=== PATIENT | female | born 1965 | race Caucasian/White ===

== ENCOUNTER 2018-05-26 13:00 | Outpatient (RCR) | payer OTHER, SELFPAY ==
--- NOTE | 2018-04-03 09:00 | PT.OPPOC ---
Current Diagnoses Benign paroxysmal vertigo, bilateral (04/03/18) Other abnormal auditory perceptions, bilateral (04/03/18) Dizziness and giddiness (04/03/18) Provider Visit Care Team Role Provider Type Iglesia Henao MD Family Provider Physician Primary Care Provider Specialty: Family Practice Address: [address] [place] [address], [id number] Email: [email or web address] Bayron Cruz MD Attending Provider Physician Specialty: Ear, Nose, Throat Address: [address] [place] [address], [id number] Email: Plan Of Care PT-OP-T Assessment and Plan Start: 04/03/18 07:47 Freq: Status: Active Protocol: Document 04/03/18 09:00 AMB (Rec: 04/07/18 08:17 AMB [email or web address]) Physical Therapy Assessment Rehab Potential Rehabilitation Potential Good Evaluation Complexity Number of Personal Factors/Comorbidities 1-2 Number of Body Systems Impaired 3 Clinical Presentation at Evaluation Evolving Impairments Impairments Balance Functional Mobility Vestibular Goals Two Impairment Balance Short Term Goal (STG) The patient will stand on one leg for 15 seconds with eyes open. STG Duration 4 weeks Veterinary Assistant Goal (LTG) The patient will stand with modified tandem stance with eyes closed without loss of balance. LTG Duration 8 weeks One Impairment Dizziness Short Term Goal (STG) The patient will get out of bed without dizziness. STG Duration 4 weeks Veterinary Assistant Goal (LTG) The patient with turn quickly while walking without dizziness. LTG Duration 8 weeks Assessment Summary Assessment The patient presents with chronic motion sensitivity and dizziness with an acute exacerbation 3 months ago. At the time of her evaluation, her right sided BPPV appeared to have cleared (we will reassess this in the future as well) so she was treated for L sided BPPV. She will also benefit from vestibular rehab given her chronic symptoms. Physical Therapy Plan Frequency and Duration Frequency of Treatment 1x/Week Duration of Treatment 8 weeks Plan of Care Start Date 04/03/18 Plan of Care End Date 05/29/18 Therapeutic Interventions Therapeutic Interventions Balance Training Canalithic Repositioning Coordination Training Gait Training Home Exercise Program Manual Therapy Neuromuscular Re-education Self-Care/Home Management Therapeutic Activities Therapeutic Exercises Vestibular Rehabilitation Next Visit Focus/Plan Next Note Type Treatment Note Plan of Care Dates Plan of Care Start Date 04/03/18 Plan of Care End Date 05/29/18 Please Sign and Return: I have reviewed this Plan of Care and certify that the skilled therapy services above are required to meet the patient?s needs. Physician Signature Date Printed Name and Credentials Clinical Instructor Signature Printed Name and Credentials
--- NOTE | 2018-04-04 09:00 | PT.OIE ---
Current Diagnoses Benign paroxysmal vertigo, bilateral (04/03/18) Other abnormal auditory perceptions, bilateral (04/03/18) Dizziness and giddiness (04/03/18) Past Surgical History History of tonsillectomy Provider Visit Care Team Role Provider Type Iglesia Henao MD Family Provider Physician Primary Care Provider Specialty: Family Practice Address: [address] [place] [address], [id number] Email: [email or web address] Bayron Cruz MD Attending Provider Physician Specialty: Ear, Nose, Throat Address: [address] [place] [address], [id number] Email: Physical Therapy Initial Evaluation PT-OP-A Visit Information Start: 04/03/18 07:47 Freq: Status: Active Protocol: Document 04/03/18 09:00 AMB (Rec: 04/07/18 07:31 AMB [email or web address]) Out-Patient Physical Therapy Visit Information Visit Information Visit Type Initial Evaluation Visit Note 45 visits pcy Visit Start Time 09:00 Visit Stop Time 09:45 Total Visit Minutes 45 Visit Number 1 Evaluation Information Evaluation Date 04/03/18 PT-OP-B Current Condition Start: 04/03/18 07:47 Freq: Status: Active Protocol: Document 04/03/18 09:00 AMB (Rec: 04/07/18 07:31 AMB [email or web address]) Current Condition History of Current Condition History of Current Condition The patient has noticed some dizziness and motion sensitivity since she was 13. This became much worse after a fishing trip a year ago. Woke up with vertigo an took 3 -4 days to go away. More recently she was on a small plane and felt pressure in her ears and vomited afterwards. It took a week for those symptoms to recede. She was then evaluated by ENT and was diagnosed with bilateral BPPV. Since that time her symptoms have decreased, but she continues to feel mild dizziness with getting out of bed and quick head turns. She does have a history of 3 concussions, plantar fasciitis (intermittent foot numbness). Current Functional Impairments (Reported) Functional Limitations- ADL's Difficulty with higher level activities (hiking, boating) PT-OP-C Subjective Start: 04/03/18 07:47 Freq: Status: Active Protocol: Document 04/03/18 09:00 AMB (Rec: 04/07/18 07:31 AMB [email or web address]) Patient Questionnaires ABC- Activity Specific Balance Confidence Scale ABC Score 90 ABC Functional Impairment 1 to <20% Impaired (Score 81- 99) Dizziness Handicap Inventory DHI Score 18 DHI Functional Impairment 1 to 19% Impaired (Score 1-19) PT-OP-D Balance Start: 04/03/18 07:47 Freq: Status: Active Protocol: Document 04/03/18 09:00 AMB (Rec: 04/07/18 08:17 AMB [email or web address]) Balance Tests Single Limb Standing Single Limb- Right unable Single Limb- Left unable Semi-Tandem Standing Semi-Tandem Standing Balance eyes open: 15 sec+, eyes closed: 5 seconds PT-OP-O Vestibular Start: 04/03/18 07:47 Freq: Status: Active Protocol: Document 04/03/18 09:00 AMB (Rec: 04/07/18 08:17 AMB [email or web address]) Vestibular Assessment Visual Testing Smooth Pursuits Horizontal WFL Smooth Pursuits Vertical WFL Saccades Horizontal WFL Saccades Vertical WFL Thrust Head Positive Left Head Shake Positive Positional Testing [place]-Hallpike Positive Left Negative Right Upbeating Rolling Test Negative Left Negative Right PT-OP-Q Treatments Start: 04/03/18 07:47 Freq: Status: Active Protocol: Document 04/03/18 09:00 AMB (Rec: 04/07/18 08:17 AMB [email or web address]) Canalithic Repositioning BPPV Treatment Ursula Affected Canal(s) L Reps 1 PT-OP-T Assessment and Plan Start: 04/03/18 07:47 Freq: Status: Active Protocol: Document 04/03/18 09:00 AMB (Rec: 04/07/18 08:17 AMB [email or web address]) Physical Therapy Assessment Rehab Potential Rehabilitation Potential Good Evaluation Complexity Number of Personal Factors/Comorbidities 1-2 Number of Body Systems Impaired 3 Clinical Presentation at Evaluation Evolving Impairments Impairments Balance Functional Mobility Vestibular Goals Two Impairment Balance Short Term Goal (STG) The patient will stand on one leg for 15 seconds with eyes open. STG Duration 4 weeks College Or University Registrar Goal (LTG) The patient will stand with modified tandem stance with eyes closed without loss of balance. LTG Duration 8 weeks One Impairment Dizziness Short Term Goal (STG) The patient will get out of bed without dizziness. STG Duration 4 weeks College Or University Registrar Goal (LTG) The patient with turn quickly while walking without dizziness. LTG Duration 8 weeks Assessment Summary Assessment The patient presents with chronic motion sensitivity and dizziness with an acute exacerbation 3 months ago. At the time of her evaluation, her right sided BPPV appeared to have cleared (we will reassess this in the future as well) so she was treated for L sided BPPV. She will also benefit from vestibular rehab given her chronic symptoms. Physical Therapy Plan Frequency and Duration Frequency of Treatment 1x/Week Duration of Treatment 8 weeks Plan of Care Start Date 04/03/18 Plan of Care End Date 05/29/18 Therapeutic Interventions Therapeutic Interventions Balance Training Canalithic Repositioning Coordination Training Gait Training Home Exercise Program Manual Therapy Neuromuscular Re-education Self-Care/Home Management Therapeutic Activities Therapeutic Exercises Vestibular Rehabilitation Next Visit Focus/Plan Next Note Type Treatment Note
--- NOTE | 2018-04-07 16:16 | PT.OPPOC ---
Current Diagnoses Benign paroxysmal vertigo, bilateral (04/03/18) Other abnormal auditory perceptions, bilateral (04/03/18) Dizziness and giddiness (04/03/18) Provider Visit Care Team Role Provider Type Iglesia Henao MD Family Provider Physician Primary Care Provider Specialty: Family Practice Address: [address] [place] [address], [id number] Email: [email or web address] Bayron Cruz MD Attending Provider Physician Specialty: Ear, Nose, Throat Address: [address] [place] [address], [id number] Email: Plan Of Care PT-OP-T Assessment and Plan Start: 04/03/18 07:47 Freq: Status: Active Protocol: Document 04/03/18 09:00 AMB (Rec: 04/07/18 08:17 AMB [email or web address]) Physical Therapy Assessment Rehab Potential Rehabilitation Potential Good Evaluation Complexity Number of Personal Factors/Comorbidities 1-2 Number of Body Systems Impaired 3 Clinical Presentation at Evaluation Evolving Impairments Impairments Balance Functional Mobility Vestibular Goals Two Impairment Balance Short Term Goal (STG) The patient will stand on one leg for 15 seconds with eyes open. STG Duration 4 weeks Pest Technician Goal (LTG) The patient will stand with modified tandem stance with eyes closed without loss of balance. LTG Duration 8 weeks One Impairment Dizziness Short Term Goal (STG) The patient will get out of bed without dizziness. STG Duration 4 weeks Pest Technician Goal (LTG) The patient with turn quickly while walking without dizziness. LTG Duration 8 weeks Assessment Summary Assessment The patient presents with chronic motion sensitivity and dizziness with an acute exacerbation 3 months ago. At the time of her evaluation, her right sided BPPV appeared to have cleared (we will reassess this in the future as well) so she was treated for L sided BPPV. She will also benefit from vestibular rehab given her chronic symptoms. Physical Therapy Plan Frequency and Duration Frequency of Treatment 1x/Week Duration of Treatment 8 weeks Plan of Care Start Date 04/03/18 Plan of Care End Date 05/29/18 Therapeutic Interventions Therapeutic Interventions Balance Training Canalithic Repositioning Coordination Training Gait Training Home Exercise Program Manual Therapy Neuromuscular Re-education Self-Care/Home Management Therapeutic Activities Therapeutic Exercises Vestibular Rehabilitation Next Visit Focus/Plan Next Note Type Treatment Note Plan of Care Dates Plan of Care Start Date 04/03/18 Plan of Care End Date 05/29/18 Please Sign and Return: I have reviewed this Plan of Care and certify that the skilled therapy services above are required to meet the patient?s needs. Physician Signature Date Printed Name and Credentials Clinical Instructor Signature Printed Name and Credentials
--- NOTE | 2018-04-10 15:39 | PT.OTN ---
Current Diagnoses Benign paroxysmal vertigo, bilateral (04/10/18) Other abnormal auditory perceptions, bilateral (04/10/18) Physical Therapy Treatment Note PT-OP-A Visit Information Start: 04/03/18 07:47 Freq: Status: Active Protocol: Document 04/10/18 10:30 AMB (Rec: 04/10/18 15:37 AMB [email or web address]) Out-Patient Physical Therapy Visit Information Visit Information Visit Type Treatment Note Visit Start Time 10:30 Visit Stop Time 11:00 Total Visit Minutes 30 Visit Number 2 Number of CHIEF COUNSEL Visits 0 Evaluation Information Evaluation Date 04/03/18 PT-OP-B Current Condition Start: 04/03/18 07:47 Freq: Status: Active Protocol: Document 04/03/18 09:00 AMB (Rec: 04/07/18 07:31 AMB [email or web address]) Current Condition History of Current Condition History of Current Condition The patient has noticed some dizziness and motion sensitivity since she was 13. This became much worse after a fishing trip a year ago. Woke up with vertigo an took 3 -4 days to go away. More recently she was on a small plane and felt pressure in her ears and vomited afterwards. It took a week for those symptoms to recede. She was then evaluated by ENT and was diagnosed with bilateral BPPV. Since that time her symptoms have decreased, but she continues to feel mild dizziness with getting out of bed and quick head turns. She does have a history of 3 concussions, plantar fasciits (intermittent foot numbness). Current Functional Impairments (Reported) Functional Limitations- ADL's Difficulty with higher level activities (hiking, boating) PT-OP-C Subjective Start: 04/03/18 07:47 Freq: Status: Active Protocol: Document 04/10/18 10:30 AMB (Rec: 04/10/18 15:37 AMB [email or web address]) OP-PT Subjective Patient Comments Patient Comments Pt states she over did it with the head turn exercises and has felt a head argueta with looking down for the past 3 days. The pressure is getting better, but continues when she bends over to pick something up. PT-OP-D Balance Start: 04/03/18 07:47 Freq: Status: Active Protocol: Document 04/03/18 09:00 AMB (Rec: 04/07/18 08:17 AMB [email or web address]) Balance Tests Single Limb Standing Single Limb- Right unable Single Limb- Left unable Semi-Tandem Standing Semi-Tandem Standing Balance eyes open: 15 sec+, eyes closed: 5 seconds PT-OP-O Vestibular Start: 04/03/18 07:47 Freq: Status: Active Protocol: Document 04/03/18 09:00 AMB (Rec: 04/07/18 08:17 AMB [email or web address]) Vestibular Assessment Visual Testing Smooth Pursuits Horizontal WFL Smooth Pursuits Vertical WFL Saccades Horizontal WFL Saccades Vertical WFL Thrust Head Positive Left Head Shake Positive Positional Testing [place]-Hallpike Positive Left Negative Right Upbeating Rolling Test Negative Left Negative Right PT-OP-Q Treatments Start: 04/03/18 07:47 Freq: Status: Active Protocol: Document 04/10/18 10:30 AMB (Rec: 04/10/18 15:37 AMB [email or web address]) Neuro Re-Education Treatment Balance Activities 3 Details stimulating background Comments NBOS with moving background 2 Details eyes closed Comments modified tandem stance, NBOS 1 Details walking with headturns Surface smooth Reps/Duration 10min Comments horizontal and vertical Vestibular Rehabilitation VOR Retraining Details thumb Distance From Target arms length Comments NBOS, modified tandem, slower head turn PT-OP-T Assessment and Plan Start: 04/03/18 07:47 Freq: Status: Active Protocol: Document 04/10/18 10:30 AMB (Rec: 04/10/18 15:37 AMB [email or web address]) Physical Therapy Assessment Assessment Summary Assessment Pt did not have nystagmus or dizziness with [place] Hallpike bilaterally. She did feel a head argueta Physical Therapy Plan Next Visit Focus/Plan Next Note Type Treatment Note Next Visit Plan Try foam balance, pt to work on walking with head turns as part of HEP
--- NOTE | 2018-04-28 14:28 | PT.OTN ---
Current Diagnoses Benign paroxysmal vertigo, bilateral (04/28/18) Other abnormal auditory perceptions, bilateral (04/28/18) Physical Therapy Treatment Note PT-OP-A Visit Information Start: 04/03/18 07:47 Freq: Status: Active Protocol: Document 04/28/18 10:00 AMB (Rec: 04/28/18 13:29 AMB [email or web address]) Out-Patient Physical Therapy Visit Information Visit Information Visit Type Treatment Note Visit Start Time 10:00 Visit Stop Time 10:30 Total Visit Minutes 30 Visit Number 3 Number of NETWORK TECHNICAL ANALYST Visits 0 Evaluation Information Evaluation Date 04/03/18 PT-OP-B Current Condition Start: 04/03/18 07:47 Freq: Status: Active Protocol: Document 04/03/18 09:00 AMB (Rec: 04/07/18 07:31 AMB [email or web address]) Current Condition History of Current Condition History of Current Condition The patient has noticed some dizziness and motion sensitivity since she was 13. This became much worse after a fishing trip a year ago. Woke up with vertigo an took 3 -4 days to go away. More recently she was on a small plane and felt pressure in her ears and vomited afterwards. It took a week for those symptoms to recede. She was then evaluated by ENT and was diagnosed with bilateral BPPV. Since that time her symptoms have decreased, but she continues to feel mild dizziness with getting out of bed and quick head turns. She does have a history of 3 concussions, plantar fasciits (intermittent foot numbness). Current Functional Impairments (Reported) Functional Limitations- ADL's Difficulty with higher level activities (hiking, boating) PT-OP-C Subjective Start: 04/03/18 07:47 Freq: Status: Active Protocol: Document 04/28/18 10:00 AMB (Rec: 04/28/18 13:29 AMB [email or web address]) OP-PT Subjective Patient Comments Patient Comments The patient notes it was especially difficult to walk at night (getting out of bed). PT-OP-D Balance Start: 04/03/18 07:47 Freq: Status: Active Protocol: Document 04/03/18 09:00 AMB (Rec: 04/07/18 08:17 AMB [email or web address]) Balance Tests Single Limb Standing Single Limb- Right unable Single Limb- Left unable Semi-Tandem Standing Semi-Tandem Standing Balance eyes open: 15 sec+, eyes closed: 5 seconds PT-OP-O Vestibular Start: 04/03/18 07:47 Freq: Status: Active Protocol: Document 04/03/18 09:00 AMB (Rec: 04/07/18 08:17 AMB [email or web address]) Vestibular Assessment Visual Testing Smooth Pursuits Horizontal WFL Smooth Pursuits Vertical WFL Saccades Horizontal WFL Saccades Vertical WFL Thrust Head Positive Left Head Shake Positive Positional Testing [place]-Hallpike Positive Left Negative Right Upbeating Rolling Test Negative Left Negative Right PT-OP-Q Treatments Start: 04/03/18 07:47 Freq: Status: Active Protocol: Document 04/28/18 10:00 AMB (Rec: 04/28/18 14:27 AMB [email or web address]) Neuro Re-Education Treatment Balance Activities 4 Details Foam- blue then qiu Comments eyes closed, then eyes closed with head turns 2 Details eyes closed Comments modified tandem stance, NBOS PT-OP-T Assessment and Plan Start: 04/03/18 07:47 Freq: Status: Active Protocol: Document 04/28/18 10:00 AMB (Rec: 04/28/18 13:29 AMB [email or web address]) Physical Therapy Assessment Assessment Summary Assessment Pt feels that alcohol and caffeine have a negative effect on her ability to do her exercises. She has been doing her exercises for the past week (not previously as they were on vacation). Physical Therapy Plan Next Visit Focus/Plan Next Note Type Treatment Note Next Visit Plan EC added to HEP
--- NOTE | 2018-05-07 16:14 | PT.OTN ---
Current Diagnoses Benign paroxysmal vertigo, bilateral (05/07/18) Other abnormal auditory perceptions, bilateral (05/07/18) Physical Therapy Treatment Note PT-OP-A Visit Information Start: 04/03/18 07:47 Freq: Status: Active Protocol: Document 05/07/18 09:00 AMB (Rec: 05/07/18 16:13 AMB [email or web address]) Out-Patient Physical Therapy Visit Information Visit Information Visit Type Treatment Note Visit Start Time 09:00 Visit Stop Time 09:45 Total Visit Minutes 45 Visit Number 4 Number of BUSINESS ATTORNEY Visits 0 Evaluation Information Evaluation Date 04/03/18 PT-OP-B Current Condition Start: 04/03/18 07:47 Freq: Status: Active Protocol: Document 04/03/18 09:00 AMB (Rec: 04/07/18 07:31 AMB [email or web address]) Current Condition History of Current Condition History of Current Condition The patient has noticed some dizziness and motion sensitivity since she was 13. This became much worse after a fishing trip a year ago. Woke up with vertigo an took 3 -4 days to go away. More recently she was on a small plane and felt pressure in her ears and vomited afterwards. It took a week for those symptoms to recede. She was then evaluated by ENT and was diagnosed with bilateral BPPV. Since that time her symptoms have decreased, but she continues to feel mild dizziness with getting out of bed and quick head turns. She does have a history of 3 concussions, plantar fasciits (intermittent foot numbness). Current Functional Impairments (Reported) Functional Limitations- ADL's Difficulty with higher level activities (hiking, boating) PT-OP-C Subjective Start: 04/03/18 07:47 Freq: Status: Active Protocol: Document 05/07/18 09:00 AMB (Rec: 05/07/18 16:13 AMB [email or web address]) OP-PT Subjective Patient Comments Patient Comments Pt notes no dizzy spells since last visit PT-OP-D Balance Start: 04/03/18 07:47 Freq: Status: Active Protocol: Document 04/03/18 09:00 AMB (Rec: 04/07/18 08:17 AMB [email or web address]) Balance Tests Single Limb Standing Single Limb- Right unable Single Limb- Left unable Semi-Tandem Standing Semi-Tandem Standing Balance eyes open: 15 sec+, eyes closed: 5 seconds PT-OP-O Vestibular Start: 04/03/18 07:47 Freq: Status: Active Protocol: Document 04/03/18 09:00 AMB (Rec: 04/07/18 08:17 AMB [email or web address]) Vestibular Assessment Visual Testing Smooth Pursuits Horizontal WFL Smooth Pursuits Vertical WFL Saccades Horizontal WFL Saccades Vertical WFL Thrust Head Positive Left Head Shake Positive Positional Testing Sebastien-Hallpike Positive Left Negative Right Upbeating Rolling Test Negative Left Negative Right PT-OP-Q Treatments Start: 04/03/18 07:47 Freq: Status: Active Protocol: Document 05/07/18 09:00 AMB (Rec: 05/07/18 16:13 AMB [email or web address]) Gym Equipment Shuttle Balance 1 Details RED Reps/Duration 15 min Comments WBOS then stride stance with head turns then eyes closed Neuro Re-Education Treatment Balance Activities 4 Details Foam- blue then qiu Comments eyes closed, then eyes closed with head turns 2 Details eyes closed Comments modified tandem stance, NBOS 1 Details walking with headturns Surface smooth Reps/Duration 10min Comments horizontal and vertical PT-OP-T Assessment and Plan Start: 04/03/18 07:47 Freq: Status: Active Protocol: Document 05/07/18 09:00 AMB (Rec: 05/07/18 16:13 AMB [email or web address]) Physical Therapy Assessment Assessment Summary Assessment Pt with most sx when room is very dark. Physical Therapy Plan Next Visit Focus/Plan Next Note Type Treatment Note Next Visit Plan Continue to work with eyes closed activities
--- NOTE | 2018-05-26 16:35 | PT.OTN ---
Current Diagnoses Benign paroxysmal vertigo, bilateral (05/26/18) Other abnormal auditory perceptions, bilateral (05/26/18) Physical Therapy Treatment Note PT-OP-A Visit Information Start: 04/03/18 07:47 Freq: Status: Active Protocol: Document 05/26/18 13:00 AMB (Rec: 05/26/18 16:35 AMB [email or web address]) Out-Patient Physical Therapy Visit Information Visit Information Visit Type Progress Note Visit Start Time 13:00 Visit Stop Time 13:45 Total Visit Minutes 45 Visit Number 5 Evaluation Information Evaluation Date 04/03/18 PT-OP-B Current Condition Start: 04/03/18 07:47 Freq: Status: Active Protocol: Document 04/03/18 09:00 AMB (Rec: 04/07/18 07:31 AMB [email or web address]) Current Condition History of Current Condition History of Current Condition The patient has noticed some dizziness and motion sensitivity since she was 13. This became much worse after a fishing trip a year ago. Woke up with vertigo an took 3 -4 days to go away. More recently she was on a small plane and felt pressure in her ears and vomited afterwards. It took a week for those symptoms to recede. She was then evaluated by ENT and was diagnosed with bilateral BPPV. Since that time her symptoms have decreased, but she continues to feel mild dizziness with getting out of bed and quick head turns. She does have a history of 3 concussions, plantar fasciits (intermittent foot numbness). Current Functional Impairments (Reported) Functional Limitations- ADL's Difficulty with higher level activities (hiking, boating) PT-OP-C Subjective Start: 04/03/18 07:47 Freq: Status: Active Protocol: Document 05/26/18 13:00 AMB (Rec: 05/26/18 16:35 AMB [email or web address]) OP-PT Subjective Patient Comments Patient Comments Pt feels she is overall doing better. She was able to walk in the dark better without falling. PT-OP-D Balance Start: 04/03/18 07:47 Freq: Status: Active Protocol: Document 04/03/18 09:00 AMB (Rec: 04/07/18 08:17 AMB [email or web address]) Balance Tests Single Limb Standing Single Limb- Right unable Single Limb- Left unable Semi-Tandem Standing Semi-Tandem Standing Balance eyes open: 15 sec+, eyes closed: 5 seconds PT-OP-O Vestibular Start: 04/03/18 07:47 Freq: Status: Active Protocol: Document 04/03/18 09:00 AMB (Rec: 04/07/18 08:17 AMB [email or web address]) Vestibular Assessment Visual Testing Smooth Pursuits Horizontal WFL Smooth Pursuits Vertical WFL Saccades Horizontal WFL Saccades Vertical WFL Thrust Head Positive Left Head Shake Positive Positional Testing Sebastien-Hallpike Positive Left Negative Right Upbeating Rolling Test Negative Left Negative Right PT-OP-Q Treatments Start: 04/03/18 07:47 Freq: Status: Active Protocol: Document 05/26/18 13:00 AMB (Rec: 05/26/18 16:35 AMB [email or web address]) Gym Equipment Shuttle Balance 1 Details RED Reps/Duration 15 min Comments WBOS then stride stance with head turns then eyes closed Neuro Re-Education Treatment Balance Activities 2 Details eyes closed Comments modified tandem stance, NBOS 1 Details walking with headturns Surface smooth Reps/Duration 10min Comments horizontal and vertical and diagonal PT-OP-T Assessment and Plan Start: 04/03/18 07:47 Freq: Status: Active Protocol: Document 05/26/18 13:00 AMB (Rec: 05/26/18 16:35 AMB [email or web address]) Physical Therapy Assessment Goals Two Impairment Balance Short Term Goal (STG) The patient will stand on one leg for 15 seconds with eyes open. MET STG Duration 4 weeks Half-Way Goal (LTG) The patient will stand with modified tandem stance with eyes closed without loss of balance. MET LTG Duration 8 weeks One Impairment Dizziness Short Term Goal (STG) The patient will get out of bed without dizziness. MET STG Duration 4 weeks Half-Way Goal (LTG) The patient with turn quickly while walking without dizziness. PROGRESS MADE LTG Duration 8 weeks Assessment Summary Assessment Pt with DGI 23/24. Symptomatic with diagonal head turns, but otherwise is improving. Physical Therapy Plan Frequency and Duration Frequency of Treatment 1x/Week Duration of Treatment 8 weeks Plan of Care Start Date 05/26/18 Plan of Care End Date 07/21/18 Therapeutic Interventions Therapeutic Interventions Balance Training Canalithic Repositioning Coordination Training Gait Training Home Exercise Program Manual Therapy Neuromuscular Re-education Self-Care/Home Management Therapeutic Activities Therapeutic Exercises Vestibular Rehabilitation Next Visit Focus/Plan Next Note Type Treatment Note Next Visit Plan Re-evaluate pt's higher level balance
--- NOTE | 2018-05-26 16:35 | PT.OPPOC ---
Current Diagnoses Benign paroxysmal vertigo, bilateral (05/26/18) Other abnormal auditory perceptions, bilateral (05/26/18) Provider Visit Care Team Role Provider Type Iglesia Henao MD Family Provider Physician Primary Care Provider Specialty: Family Practice Address: [address] [place] [address] [address], [place], [address] Email: [email or web address] Bayron Cruz MD Attending Provider Physician Specialty: Ear, Nose, Throat Address: [address] [place] [address], [address] Email: Plan Of Care PT-OP-T Assessment and Plan Start: 04/03/18 07:47 Freq: Status: Active Protocol: Document 05/26/18 13:00 AMB (Rec: 05/26/18 16:35 AMB [email or web address]) Physical Therapy Assessment Goals Two Impairment Balance Short Term Goal (STG) The patient will stand on one leg for 15 seconds with eyes open. MET STG Duration 4 weeks Senior Care Goal (LTG) The patient will stand with modified tandem stance with eyes closed without loss of balance. MET LTG Duration 8 weeks One Impairment Dizziness Short Term Goal (STG) The patient will get out of bed without dizziness. MET STG Duration 4 weeks Wool Grower Goal (LTG) The patient with turn quickly while walking without dizziness. PROGRESS MADE LTG Duration 8 weeks Assessment Summary Assessment Pt with DGI 23/24. Symptomatic with diagonal head turns, but otherwise is improving. Physical Therapy Plan Frequency and Duration Frequency of Treatment 1x/Week Duration of Treatment 8 weeks Plan of Care Start Date 05/26/18 Plan of Care End Date 07/21/18 Therapeutic Interventions Therapeutic Interventions Balance Training Canalithic Repositioning Coordination Training Gait Training Home Exercise Program Manual Therapy Neuromuscular Re-education Self-Care/Home Management Therapeutic Activities Therapeutic Exercises Vestibular Rehabilitation Next Visit Focus/Plan Next Note Type Treatment Note Next Visit Plan Re-evaluate pt's higher level balance Plan of Care Dates Plan of Care Start Date 05/26/18 Plan of Care End Date 07/21/18 Please Sign and Return: I have reviewed this Plan of Care and certify that the skilled therapy services above are required to meet the patient?s needs. Physician Signature Date Printed Name and Credentials Clinical Instructor Signature Printed Name and Credentials
--- NOTE | 2018-07-28 08:39 | PT.OPDS ---
Current Diagnoses Benign paroxysmal vertigo, bilateral (05/26/18) Other abnormal auditory perceptions, bilateral (05/26/18) Provider Visit Care Team Role Provider Type Iglesia Henao MD Family Provider Physician Primary Care Provider Specialty: Family Practice Address: [address] [place] [address], [id number] Email: [email or web address] Bayron Cruz MD Attending Provider Physician Specialty: Ear, Nose, Throat Address: [address] [place] [address], [id number] Email: Visit Number Visit Number 5 Discharge Summary PT-OP-B Current Condition Start: 04/03/18 07:47 Freq: Status: Active Protocol: Document 04/03/18 09:00 AMB (Rec: 04/07/18 07:31 AMB [email or web address]) Current Condition History of Current Condition History of Current Condition The patient has noticed some dizziness and motion sensitivity since she was 13. This became much worse after a fishing trip a year ago. Woke up with vertigo an took 3 -4 days to go away. More recently she was on a small plane and felt pressure in her ears and vomited afterwards. It took a week for those symptoms to recede. She was then evaluated by ENT and was diagnosed with bilateral BPPV. Since that time her symptoms have decreased, but she continues to feel mild dizziness with getting out of bed and quick head turns. She does have a history of 3 concussions, plantar fasciits (intermittent foot numbness). Current Functional Impairments (Reported) Functional Limitations- ADL's Difficulty with higher level activities (hiking, boating) PT-OP-C Subjective Start: 04/03/18 07:47 Freq: Status: Active Protocol: Document 05/26/18 13:00 AMB (Rec: 05/26/18 16:35 AMB [email or web address]) OP-PT Subjective Patient Comments Patient Comments Pt feels she is overall doing better. She was able to walk in the dark better without falling. PT-OP-D Balance Start: 04/03/18 07:47 Freq: Status: Active Protocol: Document 04/03/18 09:00 AMB (Rec: 07/02/18 08:17 AMB [email or web address]) Balance Tests Single Limb Standing Single Limb- Right unable Single Limb- Left unable Semi-Tandem Standing Semi-Tandem Standing Balance eyes open: 15 sec+, eyes closed: 5 seconds PT-OP-O Vestibular Start: 04/03/18 07:47 Freq: Status: Active Protocol: Document 04/03/18 09:00 AMB (Rec: 04/07/18 08:17 AMB [email or web address]) Vestibular Assessment Visual Testing Smooth Pursuits Horizontal WFL Smooth Pursuits Vertical WFL Saccades Horizontal WFL Saccades Vertical WFL Thrust Head Positive Left Head Shake Positive Positional Testing Sebastien-Hallpike Positive Left Negative Right Upbeating Rolling Test Negative Left Negative Right PT-OP-T Assessment and Plan Start: 04/03/18 07:47 Freq: Status: Active Protocol: Document 07/28/18 08:29 AMB (Rec: 07/28/18 08:39 AMB [email or web address]) Physical Therapy Assessment Goals Two Impairment Balance Short Term Goal (STG) The patient will stand on one leg for 15 seconds with eyes open. MET STG Duration 4 weeks Cottage Attendant Goal (LTG) The patient will stand with modified tandem stance with eyes closed without loss of balance. MET LTG Duration 8 weeks One Impairment Dizziness Short Term Goal (STG) The patient will get out of bed without dizziness. MET STG Duration 4 weeks Mcc Goal (LTG) The patient with turn quickly while walking without dizziness. PROGRESS MADE LTG Duration 8 weeks Assessment Summary Assessment At last visit: Pt with DGI 23 . Symptomatic with diagonal head turns, but otherwise is improving. She no longer has dizziness with bed mobility, but her high level balance (eyes closed, head turns) is not what it should be yet. The patient has not returned phone calls to schedule more. Physical Therapy Plan Discharge Physical Therapy Discharge Reasons No Longer Attending PT Discharge Comments Pt has not been seen since May.
== END 2018-05-27 11:12 ==
LOC: PHYS 13:00
PROVIDERS: Family Provider Family Medicine; PCP Family Medicine; Visit Provider Otolaryngology
DX: H93.293 Other abnormal auditory perceptions, bilateral (principal); H81.13 Benign paroxysmal vertigo, bilateral
CPT/HCPCS: 97112; 97162

== ENCOUNTER → 2019-05-04 14:00 | Outpatient (CLI) | payer OTHER, SELFPAY ==
--- NOTE | 2019-05-04 | DI.MG.S_ITS ---
BILATERAL DIGITAL SCREENING MAMMOGRAM 3D/2D WITH CAD: 05/04/2019 CLINICAL: Routine screening. Comparison is made to exams dated: 03/11/2014 mammogram, 02/19/2013 mammogram, and 10/10/2010 mammogram - [facility]. The tissue of both breasts is heterogeneously dense. This may lower the sensitivity of mammography. Current study was also evaluated with a Computer Aided Detection (CAD) system. No significant masses, calcifications, or other findings are seen in either breast. There has been no significant interval change. IMPRESSION: NEGATIVE There is no mammographic evidence of malignancy. A 1 year screening mammogram is recommended. This exam was interpreted at Station ID: [id number]. NOTE: For mammograms, a report in lay terms will be sent to the patient. Approximately 15% of breast malignancies will not be visualized mammographically. In the management of a palpable breast mass, a negative mammogram must not discourage biopsy of a clinically suspicious lesion. Electronically Signed By: Misael olmedo/flash:05/04/2019 18:38:41 copy to: Genaro Leone letter sent: Normal Exam ACR BI-RADS Category 1: Negative [id number]
== END ==
PROVIDERS: PCP Family Medicine; Visit Provider Family Medicine
DX: Z12.31 Encounter for screening mammogram for malignant neoplasm of breast (principal)
CPT/HCPCS: 77063; 77067

== ENCOUNTER → 2020-03-17 09:35 | Outpatient (CLI) | payer OTHER, SELFPAY ==
[2020-03-18 09:15] LABS: COVID19 Sendout NOT DETECTED (Not Detect)
== END ==
PROVIDERS: PCP Family Medicine; Visit Provider Registered Nurse
DX: Z01.818 Encounter for other preprocedural examination (principal)
CPT/HCPCS: 87635

== ENCOUNTER → 2020-07-07 09:42 | Outpatient (CLI) | payer OTHER, SELFPAY ==
[2020-07-07 10:25] LABS: Add Manual Diff / Slide Review NO; Basophils Absolute Auto 0 /uL (0-100); Basophils Percent Auto 0.7 % (0-2); Eosinophils Absolute Auto 100 /uL (0-450); Eosinophils Percent Auto 2.2 % (2-4); Hematocrit 38.1 % (36-46); Hemoglobin 13.3 g/dL (12.0-16.0); Lymphocytes Absolute Auto 2400 /uL (1100-4500); Lymphocytes Percent Auto 36.5 % (25-40); Mean Corpuscular HGB Conc 34.9 % (30-36); Mean Corpuscular Hemoglobin 30.8 PG (26-34); Mean Corpuscular Volume 88.3 fL (80-100); Monocytes Absolute Auto 500 /uL (0-900); Monocytes Percent Auto 8.1 % (3-14); Neutrophils Absolute Auto 3500 /uL (1500-7000); Neutrophils Percent Auto 52.5 % (50-75); Platelet Count 204 X10^3/uL (150-400); Red Blood Cell Count 4.32 X10^6/uL (4.0-5.2); Red Cell Distribution Width 13.6 % (11.6-14.8); White Blood Cell Count 6.6 X10^3/uL (4.5-11.0)
[2020-07-07 10:58] LABS: Alanine Aminotransferase 21 IU/L (<35); Albumin 4.3 g/dL (3.5-5.0); Albumin Globulin Ratio 1.6 (1.0-2.8); Alkaline Phosphatase 74 U/L (38-126); Aspartate Aminotransferase 26 IU/L (14-36); BUN Creatinine Ratio 23.1 (6-22); Bilirubin Total 0.6 mg/dL (0.2-1.3); Blood Urea Nitrogen 15 mg/dL (7-17); Calcium 9.5 mg/dL (8.4-10.2); Carbon Dioxide 30 mmol/L (22-32); Chloride 104 mmol/L (98-107); Cholesterol 218 mg/dL (140-199); Estimated Glomerular Filt Rate > 60.0 mL/min (>60); Globulin 2.7 g/dL (1.7-4.1); Glucose 95 mg/dL (70-100); HDL Cholesterol 88 mg/dL (40-60); HEMOLYSIS < 15 (0-50); LDL Cholesterol Calculated 116 mg/dL (<100); Potassium 4.6 mmol/L (3.4-5.1); Sodium 139 mmol/L (137-145); Triglycerides 71 mg/dL (35-150)
[2020-07-07 11:27] LABS: TSH w/ Reflex to FT4 1.66 uIU/mL (0.47-4.68)
== END ==
PROVIDERS: PCP Family Medicine; Referring Provider Family Medicine; Visit Provider Family Medicine
DX: Z13.220 Encounter for screening for lipoid disorders (principal)
CPT/HCPCS: 36415; 80053; 80061; 84443; 85025

== ENCOUNTER → 2020-08-24 13:52 | Outpatient (CLI) | payer OTHER, SELFPAY ==
[2020-08-24 15:49] LABS: COVID19 -Nasal RAPID Negative (Negative)
== END ==
PROVIDERS: PCP Family Medicine; Visit Provider Physician Assistant
DX: J02.9 Acute pharyngitis, unspecified (principal); R05 Cough; R09.81 Nasal congestion
CPT/HCPCS: 87635

== ENCOUNTER → 2020-08-25 17:18 | Outpatient (CLI) | payer OTHER, SELFPAY ==
--- NOTE | 2020-08-25 | DI.MG.S_ITS ---
BILATERAL DIGITAL SCREENING MAMMOGRAM 3D/2D WITH CAD: 08/25/2020 CLINICAL: Routine screening. Comparison is made to exams dated: 05/04/2019 mammogram, 03/11/2014 mammogram, and 02/19/2013 mammogram - [facility]. The tissue of both breasts is heterogeneously dense. This may lower the sensitivity of mammography. Current study was also evaluated with a Computer Aided Detection (CAD) system. No significant masses, calcifications, or other findings are seen in either breast. There has been no significant interval change. IMPRESSION: NEGATIVE There is no mammographic evidence of malignancy. A 1 year screening mammogram is recommended. This exam was interpreted at Station ID: [id number]. NOTE: For mammograms, a report in lay terms will be sent to the patient. Approximately 15% of breast malignancies will not be visualized mammographically. In the management of a palpable breast mass, a negative mammogram must not discourage biopsy of a clinically suspicious lesion. Electronically Signed By: Hakan diallo/flash:08/26/2020 08:06:29 copy to: Genaro Leone letter sent: Normal Exam ACR BI-RADS Category 1: Negative [id number]
== END ==
PROVIDERS: PCP Family Medicine; Referring Provider Family Medicine; Visit Provider Family Medicine
DX: Z12.31 Encounter for screening mammogram for malignant neoplasm of breast (principal)
CPT/HCPCS: 77063; 77067

== ENCOUNTER → 2020-09-05 09:58 | Outpatient (CLI) | payer OTHER, SELFPAY ==
[2020-09-05 11:05] LABS: COVID19 -Nasal RAPID Negative (Negative)
== END ==
PROVIDERS: PCP Family Medicine; Visit Provider Surgery
DX: Z01.812 Encounter for preprocedural laboratory examination (principal); Z11.59 Encounter for screening for other viral diseases
CPT/HCPCS: 87635; C9803

== ENCOUNTER 2020-09-06 12:46 | Day surgery (SDC) | payer OTHER, SELFPAY ==
[2020-09-06] VITALS (9 sets, daily range): BP systolic 98–130; BP diastolic 50–72; PULSE 57–63; RESP 12–18; TEMP 35.8–36.1; O2SAT 96–100; BMI 25.0
--- NOTE | 2020-09-06 | PATH_ITS ---
[facility] Accession Number: [id number] . 01 Material submitted: . PART A: colon - CECAL POLYP PART B: rectum - RECTAL POLYP @ 15CM . 01 Clinical history: . SDC . 02 Diagnosis: A. Cecum, Polyp, Biopsy: Prominent benign lymphoid aggregate. Negative for dysplasia and malignancy. . B. Rectum, Polyp At 15 CM, Biopsy: Hyperplastic polyp. I 09/08/2020 1428 Local . 02 Electronically signed: . Porsha Crum MD, Pathologist NPI- [id number] . 01 Gross description: . Part A: CECAL POLYP: Received in formalin is 1 fragment(s) of ann, soft tissue measuring 0.7 x 0.3 x 0.1 cm submitted entirely in 1 cassette(s) Part B: RECTAL POLYP @ 15CM: Received in formalin is 1 fragment(s) of ann, soft tissue measuring 0.3 x 0.3 x 0.2 cm submitted entirely in 1 cassette(s) /QBJ 09/07/2020 0814 Local . 02 Pathologist provided ICD-10: K63.5 . 02 CPT . 252766, [id number] Performed at: 01 [facility] [address], [place], [place] [id number] MD Josh Kimbrough MD Phone: [phone] Performed at: 02 [facility] [place] [address] [place], [place] [id number] MD Porsha Crum MD Phone: [phone]
[2020-09-06] MEDS: SODIUM CHLORIDE 0.9% 1,000 ML 200 ML IV ×2 (13:16→14:40)
--- NOTE | 2020-09-06 13:48 | P.HP_ITS ---
History of Present Illness History of Present Illness Date Patient Seen: 09/06/20 Time Patient Seen: 13:49 Chief complaint: [facility] [place] Narrative: This is a 55-year-old woman who has never had a screening colonoscopy. She denies any melena, hematochezia, unexplained weight loss, personal or family history of colon polyps or colon cancers. She has had some left-sided abdominal pain which was unexplained over the last few weeks. She denies any cardiac history other than a slight heart murmur. She says she is otherwise quite healthy. 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 She said last time this happened she was not able to get a breath in for about 3 breaths, and then she was able to breathe. Thirteen system review is otherwise negative other than as mentioned below and in HPI. PE GENERAL: Well groomed and cooperative. Appears stated age. Answers questions promptly and appropriately. Vital signs noted. HENT: Normocephalic, atraumatic. Hearing intact. EYES: Conjunctiva pink, sclera white, no periorbital swelling. CARDIOVASCULAR: Regular rate. No pedal edema. RESPIRATORY: Non-tachypneic, breathing comfortably on room air. GASTROINTESTINAL: Abdomen soft and non-distended GENITALURINARY: No flank tenderness. MUSCULOSKELETAL: Equal tone and mass bilaterally. SKIN: Warm, dry, soft, appropriate color for ethnicity. No other lesions, rashes, or wounds. NEURO: Alert and Oriented X 3. No gross sensory deficits, or cognitive issues. PSYCH: Appropriate affect and mood. Patient History Surgical History History of tonsillectomy Family & Social History Social History: household members spouse Tobacco & Substance use: Smoking Status Never smoker alcohol intake current alcohol intake frequency 0-2 drinks per day Substance Use Type does not use Meds Home Medications and Allergies Home Medications Medication Instructions Recorded Confirmed Type sodium,potassium,mag sulfates 17.5 177 ml PO DAILY #354 ml 08/18/20 Rx gram-3.13 gram-1.6 gram oral soln Ca carb-Ca gluc-Mg ox-Mg gluco 1 tab PO DAILY 09/06/20 09/06/20 History [Calcium Magnesium] cholecalciferol (vitamin D3) 250 mcg PO DAILY 09/06/20 09/06/20 History [Vitamin D3] fluticasone propionate [Flonase] 2 spray INTRANASAL DAILY PRN 09/06/20 09/06/20 History pfskfhcjgdap-onax-ygbqu acid 1 tab PO DAILY 09/06/20 09/06/20 History [Multi Complete with Iron] omega-3 fatty acids [[place] 3 Fish 1,000 mg PO DAILY 09/06/20 09/06/20 History Oil] vitamin B42-jbalb acid 1 tab PO DAILY 09/06/20 09/06/20 History Allergies Allergy/AdvReac Type Severity Reaction Status Date / Time aspirin [ASPIRIN] Allergy Severe FACE AND Verified 09/06/20 13:04 THROAT SWELLING ibuprofen [IBUPROFEN] Allergy Severe MOUTH Verified 09/06/20 13:04 SWELLING zolpidem [ZOLPIDEM] Allergy Severe THROAT Verified 09/06/20 13:04 SWELLING azithromycin [AZITHROMYCIN] Allergy Mild DIZZINESS Verified 09/06/20 13:04 guaifenesin [GUAIFENESIN] Allergy Mild DIZZY AND Verified 09/06/20 13:04 NAUSEA Penicillins [PENICILLINS] Allergy Mild FACIAL Verified 09/06/20 13:04 EDEMA AND HIVES Exam Vital Signs (past 8 hours): - 09/06/20 13:06 Temperature 96.8 F L Pulse Rate 57 L Respiratory Rate 17 Blood Pressure 130/72 Pulse Oximetry 100 Oxygen Delivery Method Room Air Assessment & Plan Assessment and plan (1) At average risk for colon cancer: Status: Acute (2) Left sided abdominal pain: Status: Acute Assessment & Plan narrative: Risks and benefits of screening colonoscopy and possible polypectomy were discussed with the patient including risk of bleeding, perforation, need for additional procedures, risks of anesthesia. The patient desires to proceed with the colonoscopy procedure. COVID-19 COVID-19 status: Negative Result date/Date tested (Pos, Neg/Pending): 09/05/20 Time Spent With Patient Time with patient: 15-24 minutes Quality VTE Deep Vein Thrombosis/Pulmonary Embolism Present on Admission: No
--- NOTE | 2020-09-06 13:52 | PM.OP.ENDO ---
Operative Date/Time/Diagnoses Date of procedure: 09/06/20 Time of procedure: 13:52 Pre-op diagnosis: Average risk colon cancer, left-sided abdominal pain Post-op diagnosis: other (Single rectal polyp) Procedure & Clinicians Study performed: Colonoscopy Procedure sedation performed by the endoscopist Polypectomy with Jumbo forceps Same procedure as scheduled: Yes Indications: Average risk for colon cancer, never had a screening colonoscopy. Unexplained left-sided abdominal pain. Surgeon: Kinga Goss Procedure Notes SCOAP/Timeout: Performed Procedure in detail: The patient was brought to the room and placed in left lateral decubitus position with all bony prominences padded. A time-out was performed and then the patient was given procedural sedation starting with 4 mg of Versed and 100 mcg of fentanyl. A total of 8 mg of Versed and 200 micro g of fentanyl were given for the entire procedure. Vitals were monitored throughout the procedure and remained stable. Once adequately sedated, the procedure was begun. A rectal exam was performed revealing no abnormalities. The colonoscope was then introduced to the rectum and advanced to the cecum in the usual fashion. The colon very tortuous, and multiple maneuvers were required to reach the cecum safely, including using the scope stiffener, in counter pressure on the abdominal wall. The cecum was identified by the appendiceal orifice, the mucosal tri-fold, and the ileocecal valve. The scope was then retracted while rotating side to side and examining each mucosal fold. A 3 mm polyp was found at 15 cm in the rectum. There was removed with cold forceps At the conclusion of the procedure retroflexion was performed and small grade 1-2 internal hemorrhoids without stigmata of bleeding were seen. The scope was then withdrawn from the rectum the procedure was concluded. The patient tolerated the procedure well and was transferred to the PACU in stable condition. Scope withdrawal time: 8 Sedation minutes: 21 Findings: polyp Specimen(s): other (Polyp) Complications: none Impression: Single polyp in the rectum Post-procedure Recommendations: Colonscopy in 10 years (So long as pathology is low-grade) Follow up: as needed Disposition: PACU
[2020-09-06] MEDS: fentaNYL 250 MCG/5 ML INJ IV (14:04)
[2020-09-06] MEDS: MIDAZOLAM 5 MG/5 ML VIAL IV (14:04)
== END 2020-09-06 15:15 | disposition home or self-care (01) ==
PROVIDERS: PCP Family Medicine; Referring Provider Family Medicine; Visit Provider Surgery
PROC: 0DJD8ZZ Inspection of Lower Intestinal Tract, Via Natural or Artificial Opening Endoscopic (ICD-10-PCS; CPT 45378; principal; 2020-09-06 13:45)
DX: K64.0 First degree hemorrhoids (principal); K63.5 Polyp of colon
CPT/HCPCS: 45380; 99152; J2250; J3010

== ENCOUNTER 2021-04-04 12:44 | Emergency (ER) | payer OTHER, SELFPAY ==
[2021-04-04 12:56] VITALS: BP 103/60; PULSE 54; RESP 16; TEMP 36.1; O2SAT 99; BMI 24.6
[2021-04-04 13:29] VITALS: BP 115/61; PULSE 48; RESP 14; O2SAT 100
[2021-04-04 14:11] VITALS: BP 122/71; PULSE 51; RESP 14; O2SAT 100
--- NOTE | 2021-04-04 14:49 | DI.RAD.S_ITS ---
PROCEDURE: XR CHEST 1V INDICATIONS: chest pain TECHNIQUE: One view of the chest was acquired. COMPARISON: None. FINDINGS: Surgical changes and devices: None. Lungs and pleura: Lungs are clear. No pleural effusions or pneumothorax. Mediastinum: Mediastinal contours appear normal. Heart size is normal. Bones and chest wall: No suspicious bony lesions. Overlying soft tissues appear unremarkable. IMPRESSION: No acute pulmonary process. Dictated by: Rachel Rios M.D. on 04/04/2021 at 15:15 Approved by: Rachel Rios M.D. on 04/04/2021 at 15:16
--- NOTE | 2021-04-04 15:09 | ED_ITS ---
HPI - Syncope General Chief Complaint: Syncope Stated Complaint: Chest Pain Time Seen by Provider: 04/04/21 14:43 Source: patient and EMS Mode of arrival: EMS Limitations: no limitations History of Present Illness HPI narrative: Patient is a 55-year-old female who presents after syncopal episode while giving blood. She apparently gave blood and then felt extremely dizzy and lightheaded and had a brief episode of passing out but she does not and then shortly after she felt it again and had some mild chest discomfort. No trauma glucose was checked and was above 100 she now is feeling significantly better. Chest pain has resolved she is not dizzy or lightheaded no weakness numbness or tingling no nausea or vomiting Related Data Home Medications Medication Instructions Recorded Confirmed calcium carb-Ca gluc 500 mg 1 tab PO DAILY 09/06/20 10/25/20 calcium-magnesium ox-Mg gluc 250 mg tablet (Calcium Magnesium) cholecalciferol (vitamin D3) 125 250 mcg PO DAILY 09/06/20 10/25/20 mcg (5,000 unit) tablet (Vitamin D3) fluticasone propionate 50 2 spray INTRANASAL DAILY PRN 09/06/20 10/25/20 mcg/actuation nasal spray,suspension multivitamin-ferrous 1 tab PO DAILY 09/06/20 10/25/20 fumarate-folic acid 18 mg-400 mcg tablet (Multi Complete with Iron) omega-3 fatty acids 1,000 mg PO DAILY 09/06/20 10/25/20 vitamin B12 500 mcg-folic acid 400 1 tab PO DAILY 09/06/20 10/25/20 mcg tablet Previous Rx's Medication Instructions Recorded sodium,potassium,mag sulfates 17.5 177 ml PO DAILY #354 ml 08/18/20 gram-3.13 gram-1.6 gram oral soln lorazepam 0.5 mg tablet 0.5 mg PO ONCE PRN #1 tab 12/27/20 Allergies Allergy/AdvReac Type Severity Reaction Status Date / Time aspirin [ASPIRIN] Allergy Severe FACE AND Verified 10/25/20 15:10 THROAT SWELLING ibuprofen [IBUPROFEN] Allergy Severe MOUTH Verified 10/25/20 15:10 SWELLING zolpidem [ZOLPIDEM] Allergy Severe THROAT Verified 10/25/20 15:10 SWELLING azithromycin [AZITHROMYCIN] Allergy Mild DIZZINESS Verified 10/25/20 15:10 guaifenesin [GUAIFENESIN] Allergy Mild DIZZY AND Verified 10/25/20 15:10 NAUSEA Penicillins [PENICILLINS] Allergy Mild FACIAL Verified 10/25/20 15:10 EDEMA AND HIVES lubrication Allergy Unknown Uncoded 10/25/20 15:10 Review of Systems Review of Systems Narrative: GENERAL: Denies chills, fatigue, malaise, fever, sweats, travel HEENT: Denies sinus pain, ear pain, sore throat, difficulty swallowing, neck pain RESPIRATORY: Denies dyspnea, cough, wheezing, hemoptysis, sputum. CARDIOVASCULAR: Denies chest pain, palpitations, orthopnea, edema GASTROINTESTINAL: Denies nausea, vomiting, abdominal pain, diarrhea, constipation, melena. : Denies dysuria, frequency, incontinence, hematuria, urinary retention, flank pain. MUSCULOSKELETAL: Denies weakness, joint pain, or bony pain SKIN: No rash, no erythema, no pruritus NEUROLOGIC: See HPI PSYCHIATRIC: No concerning psychosocial issues. 12 point review of systems is negative except for those stated above and HPI Patient History Surgical History History of tonsillectomy Social History marital status: household members: spouse Smoking Status: Never smoker alcohol intake: current substance use type: does not use Smoking Status: Never smoker alcohol intake frequency: 0-2 drinks per day Substance Use Type: does not use Exam Initial Vital Signs Initial Vital Signs: Vital Signs Temperature 96.9 F L 04/04/21 12:56 Pulse Rate 54 L 04/04/21 12:56 Respiratory Rate 16 04/04/21 12:56 Blood Pressure 103/60 04/04/21 12:56 Pulse Oximetry 99 04/04/21 12:56 GENERAL: Well-appearing, well-nourished and in no acute distress. HEENT: Head atraumatic,EOMI, pupils reactive, face symmetric, moist mucous mem brane CARDIOVASCULAR: Regular rate and rhythm without murmurs, rubs or gallops. RESPIRATORY: Breath sounds equal bilaterally, no wheezes rales or rhonchi. ABDOMEN: Soft, nontender. Normoactive bowel sounds all 4 quadrants. No guarding or rebound. EXTREMITIES: Normal range of motion, no clubbing or edema. Neurovascularly intact NEUROLOGICAL: Alert and oriented x4.Normal gait and speech. SKIN: Warm, dry, no laceration, no petechiae, no rashes or lesions. Course Orders Ordered: ED Orders 04/04/21 12:48 EKG-12 Lead Routine 04/04/21 13:15 Complete Blood Count AUTO DIFF Stat Comprehensive Metabolic Panel Stat Lipase Stat Troponin & CK Cardiac Panel Stat 04/04/21 14:49 XR chest 1V Stat Vital Signs Vital signs: Vital Signs - 8 hr 04/04/21 12:56 04/04/21 13:29 04/04/21 14:11 Temperature 96.9 F L Pulse Rate 54 L 48 L 51 L Respiratory Rate 16 14 14 Blood Pressure 103/60 115/61 122/71 Pulse Oximetry 99 100 100 04/04/21 15:10 Temperature Pulse Rate 47 L Respiratory Rate 20 Blood Pressure 149/68 H Pulse Oximetry 100 MDM - Syncope Lab Data Result diagrams: 04/04/21 13:15 04/04/21 13:15 Labs: Lab Results 04/04/21 04/04/21 Range/Units 13:15 13:15 WBC 12.4 H (4.5-11.0) X10^3/uL RBC 3.97 L (4.0-5.2) X10^6/uL Hgb 12.0 (12.0-16.0) g/dL Hct 35.7 L (36-46) % MCV 89.8 (80-100) fL MCH 30.1 (26-34) PG MCHC 33.5 (30-36) % RDW 13.8 (11.6-14.8) % Plt Count 218 (150-400) X10^3/uL Neut % (Auto) 68.3 (50-75) % Lymph % (Auto) 24.2 L (25-40) % Baxter % (Auto) 5.6 (3-14) % Eos % (Auto) 1.6 L (2-4) % Baso % (Auto) 0.3 (0-2) % Neut # (Auto) 8500 H (7906-8998) /uL Lymph # (Auto) 3000 (0175-6000) /uL Baxter # (Auto) 700 (0-900) /uL Eos # (Auto) 200 (0-450) /uL Baso # (Auto) 0 (0-100) /uL Sodium 138 (137-145) mmol/L Potassium 3.8 (3.4-5.1) mmol/L Chloride 107 (98-107) mmol/L Carbon Dioxide 25 (22-32) mmol/L BUN 17 (7-17) mg/dL Creatinine 0.54 (0.52-1.04) mg/dL Estimated GFR > 60.0 (>60) mL/min BUN/Creatinine Ratio 31.5 H (6-22) Glucose 132 H (70-100) mg/dL Calcium 9.3 (8.4-10.2) mg/dL Total Bilirubin 0.3 (0.2-1.3) mg/dL AST 28 (14-36) IU/L ALT 15 (<35) IU/L Alkaline Phosphatase 73 (38-126) U/L Total Creatine Kinase 56 (30-135) U/L CK-MB (CK-2) TNP CK-MB (CK-2) Rel Index TNP Troponin I < 0.012 (0.01-0.034) ng/mL Total Protein 6.7 (6.3-8.2) g/dL Albumin 4.0 (3.5-5.0) g/dL Globulin 2.7 (1.7-4.1) g/dL Albumin/Globulin Ratio 1.5 (1.0-2.8) Lipase 114 (23-300) U/L Point of Care Testing Glucose POC 146 ECG Data Interpretation: Normal sinus rhythm rate 50 p.r. interval 148 QRS 82 QTC 415 MDM Narrative Medical decision making narrative: And unfortunately informed patient of the wrong EKG findings but I read the EKG correctly, I mixed up the 2 EKGs. Her EKG does not show any acute finding. She has symptoms consistent with a vasovagal syncopal episode after donating blood. She is completely asymptomatic this time. Patient was called after I informed her of the wrong EKG findings is and told her hers was benign. Discharge Plan Departure Patient Disposition: Home Clinical Impression: Syncope, vasovagal Instructions: DI for Syncope in Adults (Fainting) Activity Restrictions/Additional Instructions: *You have been diagnosed with vasovagal *What to do: EKG does show possibly enlarged heart however I believe your symptoms today were from donating blood. Please follow-up with your primary care provider *Continue to take medications as directed *Follow up with your primary care provider in 2-3 days *Return to ER if you should have recurrent episode of passing out, chest pain shortness of breath dizziness lightheadedness weakness numbness or tingling or any new, worsening or concerning symptoms Prescriptions: No Action sodium,potassium,mag sulfates 17.5-3.13-1.6 gram recon soln 177 ml PO DAILY Qty: 354 RF: 0 lorazepam 0.5 mg tablet 0.5 mg PO ONCE PRN (Reason: anxiety) Qty: 1 RF: 0 fluticasone propionate 50 mcg/actuation [place],Suspension 2 spray INTRANASAL DAILY PRN (Reason: seasonal allergies) RF: 0 omega-3 fatty acids Capsule 1,000 mg PO DAILY RF: 0 Multi Complete with Iron 18-400 mg-mcg Tablet 1 tab PO DAILY RF: 0 cholecalciferol (vitamin D3) [Vitamin D3] 125 mcg (5,000 unit) Tablet 250 mcg PO DAILY RF: 0 vitamin [id number] acid 500-400 mcg Tablet 1 tab PO DAILY RF: 0 Calcium Magnesium 500 mg calcium -250 mg Tablet 1 tab PO DAILY RF: 0 Referrals: Iglesia Henao MD [Primary Care Provider] -
[2021-04-04 15:10] VITALS: BP 149/68; PULSE 47; RESP 20; O2SAT 100
[2021-04-04 15:17] LABS: Add Manual Diff / Slide Review NO; Basophils Absolute Auto 0 /uL (0-100); Basophils Percent Auto 0.3 % (0-2); Eosinophils Absolute Auto 200 /uL (0-450); Eosinophils Percent Auto 1.6 % (2-4); Hematocrit 35.7 % (36-46); Lymphocytes Absolute Auto 3000 /uL (1100-4500); Lymphocytes Percent Auto 24.2 % (25-40); Mean Corpuscular HGB Conc 33.5 % (30-36); Mean Corpuscular Hemoglobin 30.1 PG (26-34); Mean Corpuscular Volume 89.8 fL (80-100); Monocytes Absolute Auto 700 /uL (0-900); Monocytes Percent Auto 5.6 % (3-14); Neutrophils Absolute Auto 8500 /uL (1500-7000); Neutrophils Percent Auto 68.3 % (50-75); Platelet Count 218 X10^3/uL (150-400); Red Blood Cell Count 3.97 X10^6/uL (4.0-5.2); Red Cell Distribution Width 13.8 % (11.6-14.8); White Blood Cell Count 12.4 X10^3/uL (4.5-11.0)
[2021-04-04 15:23] LABS: Alanine Aminotransferase 15 IU/L (<35); Albumin Globulin Ratio 1.5 (1.0-2.8); Alkaline Phosphatase 73 U/L (38-126); Aspartate Aminotransferase 28 IU/L (14-36); BUN Creatinine Ratio 31.5 (6-22); Bilirubin Total 0.3 mg/dL (0.2-1.3); Blood Urea Nitrogen 17 mg/dL (7-17); Calcium 9.3 mg/dL (8.4-10.2); Carbon Dioxide 25 mmol/L (22-32); Chloride 107 mmol/L (98-107); Creatine Kinase 56 U/L (30-135); Estimated Glomerular Filt Rate > 60.0 mL/min (>60); Globulin 2.7 g/dL (1.7-4.1); Glucose 132 mg/dL (70-100); HEMOLYSIS < 15 (0-50); Lipase 114 U/L (23-300); Potassium 3.8 mmol/L (3.4-5.1); Sodium 138 mmol/L (137-145); Total Protein 6.7 g/dL (6.3-8.2)
[2021-04-04 15:34] LABS: Troponin I < 0.012 ng/mL (0.01-0.034)
== END 2021-04-04 15:30 | disposition home or self-care (01) ==
PROVIDERS: Emergency Provider Emergency Medicine; PCP Family Medicine
DX: R55 Syncope and collapse (principal); R42 Dizziness and giddiness; R07.9 Chest pain, unspecified
CPT/HCPCS: 36415; 71045; 80053; 82550; 83690; 84484; 85025; 93005; 99283; 99284

== ENCOUNTER → 2021-06-07 11:40 | Outpatient (CLI) | payer OTHER, SELFPAY ==
[2021-06-07 14:12] LABS: COVID19 -Nasal RAPID Negative (Negative)
== END ==
PROVIDERS: PCP Family Medicine; Visit Provider Physician Assistant
DX: R05 Cough (principal); Z20.822 Contact with and (suspected) exposure to COVID-19
CPT/HCPCS: 87635

== ENCOUNTER → 2021-07-14 09:47 | Outpatient (CLI) | payer OTHER, SELFPAY ==
--- NOTE | 2021-07-14 09:48 | DI.US.S_ITS ---
PROCEDURE: US PELVIC COMPLETE INDICATIONS: PMB/PELVIC PAIN TECHNIQUE: Real-time scanning was performed of the pelvic organs, with image documentation. Additional endovaginal scanning was necessary due to incomplete visualization of the adnexal and endometrial structures by transabdominal scanning. COMPARISON: [facility], US, PELVIC COMPLETE, 06/14/2016, 14:13. FINDINGS: Uterus: Uterus is normal in size at 3.8 x 2.6 x 4.3 cm. The endometrium measures 1.9 mm in combined thickness. Small amount of fluid in the endometrial canal, which may be physiologic. Hypoechoic lesions in the cervix, most consistent with about the cyst. Ovaries: The right ovary measures 2.7 x 0.7 x 1.9 cm. The left ovary measures 1.9 x 1.1 x 1.3 cm. Other: No pathologic free abdominal or pelvic fluid. IMPRESSION: No significant sonographic abnormality. Dictated by: Isaac Bearden M.D. on 07/14/2021 at 10:58 Approved by: Isaac Bearden M.D. on 07/14/2021 at 11:11
== END ==
PROVIDERS: PCP Family Medicine; Referring Provider Obstetrics & Gynecology; Visit Provider Obstetrics & Gynecology
DX: N95.0 Postmenopausal bleeding (principal); N93.0 Postcoital and contact bleeding; N94.9 Unspecified condition associated with female genital organs and menstrual cycle; R10.2 Pelvic and perineal pain
CPT/HCPCS: 76830; 76856

== ENCOUNTER → 2021-10-10 16:24 | Outpatient (CLI) | payer OTHER, SELFPAY ==
--- NOTE | 2021-10-10 | DI.MG.S_ITS ---
BILATERAL DIGITAL SCREENING MAMMOGRAM 3D/2D WITH CAD: 10/10/2021 CLINICAL: Routine screening. Comparison is made to exams dated: 08/25/2020 mammogram, 05/04/2019 mammogram, and 03/11/2014 mammogram - [facility]. The tissue of both breasts is heterogeneously dense. This may lower the sensitivity of mammography. Current study was also evaluated with a Computer Aided Detection (CAD) system. No significant masses, calcifications, or other findings are seen in either breast. IMPRESSION: NEGATIVE There is no mammographic evidence of malignancy. A 1 year screening mammogram is recommended. This exam was interpreted at Station ID: [id number]. NOTE: For mammograms, a report in lay terms will be sent to the patient. Approximately 15% of breast malignancies will not be visualized mammographically. In the management of a palpable breast mass, a negative mammogram must not discourage biopsy of a clinically suspicious lesion. Electronically Signed By: Arnulfo Cadet acr/:10/10/2021 17:30:37 copy to: Genaro Leone letter sent: Normal Exam ACR BI-RADS Category 1: Negative [id number]
== END ==
PROVIDERS: PCP Family Medicine; Referring Provider Obstetrics & Gynecology; Visit Provider Obstetrics & Gynecology
DX: Z12.31 Encounter for screening mammogram for malignant neoplasm of breast (principal)
CPT/HCPCS: 77063; 77067

== ENCOUNTER → 2021-12-05 17:25 | Outpatient (CLI) | payer OTHER, SELFPAY ==
[2021-12-05 18:58] LABS: Alanine Aminotransferase 16 IU/L (<35); Albumin 4.5 g/dL (3.5-5.0); Albumin Globulin Ratio 1.7 (1.0-2.8); Alkaline Phosphatase 68 U/L (38-126); Aspartate Aminotransferase 28 IU/L (14-36); BUN Creatinine Ratio 20.7 (6-22); Bilirubin Total 0.5 mg/dL (0.2-1.3); Blood Urea Nitrogen 17 mg/dL (7-17); Calcium 9.2 mg/dL (8.4-10.2); Carbon Dioxide 28 mmol/L (22-32); Chloride 104 mmol/L (98-107); Estimated Glomerular Filt Rate > 60.0 mL/min (>60); Globulin 2.7 g/dL (1.7-4.1); Glucose 98 mg/dL (70-100); HEMOLYSIS < 15 (0-50); Lipase 96 U/L (23-300); Potassium 3.6 mmol/L (3.4-5.1); Sodium 139 mmol/L (137-145); Total Protein 7.2 g/dL (6.3-8.2)
[2021-12-05 19:29] LABS: Add Manual Diff / Slide Review NO; Basophils Absolute Auto 0 /uL (0-100); Basophils Percent Auto 0.3 % (0-2); Eosinophils Absolute Auto 100 /uL (0-450); Eosinophils Percent Auto 1.4 % (2-4); Hematocrit 38.4 % (36-46); Hemoglobin 12.7 g/dL (12.0-16.0); Lymphocytes Absolute Auto 3000 /uL (1100-4500); Lymphocytes Percent Auto 37.2 % (25-40); Mean Corpuscular HGB Conc 33.1 % (30-36); Mean Corpuscular Hemoglobin 29.4 PG (26-34); Mean Corpuscular Volume 88.9 fL (80-100); Monocytes Absolute Auto 600 /uL (0-900); Neutrophils Absolute Auto 4300 /uL (1500-7000); Neutrophils Percent Auto 54.1 % (50-75); Platelet Count 215 X10^3/uL (150-400); Red Blood Cell Count 4.33 X10^6/uL (4.0-5.2); Red Cell Distribution Width 14.3 % (11.6-14.8); White Blood Cell Count 7.9 X10^3/uL (4.5-11.0)
== END ==
PROVIDERS: PCP Family Medicine; Referring Provider Family Medicine; Visit Provider Family Medicine
DX: R10.9 Unspecified abdominal pain (principal)
CPT/HCPCS: 36415; 80053; 83690; 85025

== ENCOUNTER 2022-06-06 12:11 | Emergency (ER) | payer OTHER, SELFPAY ==
[2022-06-06 12:13] VITALS: BP 212/100; PULSE 76; RESP 16; TEMP 36; O2SAT 99; BMI 23.3
--- NOTE | 2022-06-06 12:19 | DI.RAD.S_ITS ---
PROCEDURE: XR CHEST 1V INDICATIONS: chest pain TECHNIQUE: One view of the chest was acquired. COMPARISON: [facility], CR, XR CHEST 1V, 04/04/2021, 14:52. FINDINGS: Surgical changes and devices: None. Lungs and pleura: Prominent lung volumes. Lungs appear clear. No pleural effusions or pneumothorax. Mediastinum: Mediastinal contours appear normal. Heart size is normal. Bones and chest wall: No suspicious bony lesions. Overlying soft tissues appear unremarkable. IMPRESSION: No acute cardiopulmonary abnormality. Dictated by: Demetrius Domínguez M.D. on 06/06/2022 at 13:11 Approved by: Demetrius Domínguez M.D. on 06/06/2022 at 13:12
--- NOTE | 2022-06-06 12:25 | DI.CT.S_ITS ---
PROCEDURE: CT HEAD/BRAIN WO CON INDICATIONS: headache/lightheaded/R sided weakness/ COVID+ TECHNIQUE: Noncontrast 4.5 mm thick angled axial sections acquired from the foramen magnum to the vertex, with coronal and sagittal reformats. For radiation dose reduction, the following was used: automated exposure control, adjustment of mA and/or kV according to patient size. COMPARISON: [facility], CT, HEAD WITHOUT CONTRAST, 03/17/2012, 12:47. FINDINGS: Image quality: Excellent. CSF spaces: Basal cisterns are patent. No extra-axial fluid collections. Ventricles are normal in size and shape. Brain: No midline shift. No intracranial masses or hemorrhage. Carmichael-white matter interface is normal. Skull and face: Calvarium and visualized facial bones are intact, without suspicious lesions. Sinuses: Visualized sinuses and mastoids are clear. IMPRESSION: Unremarkable CT brain Approved by: Jordi Johnson M.D. on 06/06/2022 at 11:41
[2022-06-06 12:41] LABS: Add Manual Diff / Slide Review NO; Basophils Absolute Auto 0 /uL (0-100); Basophils Percent Auto 0.4 % (0-2); Eosinophils Absolute Auto 200 /uL (0-450); Hematocrit 40.1 % (36-46); Hemoglobin 13.6 g/dL (12.0-16.0); Lymphocytes Absolute Auto 3800 /uL (1100-4500); Lymphocytes Percent Auto 45.2 % (25-40); Mean Corpuscular HGB Conc 33.8 % (30-36); Mean Corpuscular Hemoglobin 29.9 PG (26-34); Mean Corpuscular Volume 88.5 fL (80-100); Monocytes Absolute Auto 700 /uL (0-900); Monocytes Percent Auto 7.8 % (3-14); Neutrophils Absolute Auto 3800 /uL (1500-7000); Neutrophils Percent Auto 44.6 % (50-75); Platelet Count 239 X10^3/uL (150-400); Red Blood Cell Count 4.53 X10^6/uL (4.0-5.2); Red Cell Distribution Width 13.6 % (11.6-14.8); White Blood Cell Count 8.4 X10^3/uL (4.5-11.0)
[2022-06-06 12:52] LABS: COVID19 -Nasal RAPID Negative (Negative)
[2022-06-06 12:54] LABS: Alanine Aminotransferase 14 IU/L (<35); Albumin 4.4 g/dL (3.5-5.0); Albumin Globulin Ratio 1.6 (1.0-2.8); Alkaline Phosphatase 63 U/L (38-126); Aspartate Aminotransferase 22 IU/L (14-36); BUN Creatinine Ratio 26.8 (6-22); Bilirubin Total 0.5 mg/dL (0.2-1.3); Blood Urea Nitrogen 19 mg/dL (7-17); Calcium 9.1 mg/dL (8.4-10.2); Carbon Dioxide 25 mmol/L (22-32); Chloride 106 mmol/L (98-107); Creatine Kinase 51 U/L (30-135); Estimated Glomerular Filt Rate > 60 mL/min (>60); Globulin 2.8 g/dL (1.7-4.1); Glucose 134 mg/dL (70-100); HEMOLYSIS < 15 (0-50); Lipase 122 U/L (23-300); Potassium 3.7 mmol/L (3.4-5.1); Sodium 140 mmol/L (137-145); Total Protein 7.2 g/dL (6.3-8.2)
[2022-06-06 12:59] LABS: Prothrombin Time 11.2 SECONDS (10.1-12.7)
[2022-06-06 13:02] LABS: PTT Partial Thromboplastin Tim 29 SECONDS (26-36)
[2022-06-06 13:04] LABS: Troponin I < 0.012 ng/mL (0.01-0.034)
--- NOTE | 2022-06-06 16:19 | ED.GENADULT ---
HPI - General Adult General Chief complaint: Hypertension Stated complaint: PT. feels like having stroke Time Seen by Provider: 06/06/22 16:19 Source: patient Mode of arrival: Wheelchair History of Present Illness HPI narrative: Patient is a 57-year-old female with no past medical history presenting today with right-sided head pressure. She said she was doing some light housework she had some pressure she had no visual loss no slurring of speech no numbness tingling or weakness. Her blood pressure is noted to be elevated. She was sent to the ED for stroke evaluation. Symptoms have completely resolved now. Blood pressure remains mildly elevated. She denies any chest pain now. However she said month or 2 ago she had some chest tightness and she has an appointment with cardiology but not for another month. Denying chest pain and shortness of breath currently. Overall feeling back to her normal. Related Data Home Medications Medication Instructions Recorded Confirmed calcium carb-Ca gluc 500 mg 1 tab PO DAILY 09/06/20 04/23/22 calcium-magnesium ox-Mg gluc 250 mg tablet (Calcium Magnesium) cholecalciferol (vitamin D3) 125 250 mcg PO DAILY 09/06/20 04/23/22 mcg (5,000 unit) tablet (Vitamin D3) multivitamin-ferrous 1 tab PO DAILY 09/06/20 04/23/22 fumarate-folic acid 18 mg-400 mcg tablet (Multi Complete with Iron) omega-3 fatty acids 1,000 mg PO DAILY 09/06/20 04/23/22 vitamin B12 500 mcg-folic acid 400 1 tab PO DAILY 09/06/20 04/23/22 mcg tablet Previous Rx's Medication Instructions Recorded sodium,potassium,mag sulfates 17.5 177 ml PO DAILY 2 doses #354 mL 08/18/20 gram-3.13 gram-1.6 gram oral soln estradiol 10 mcg vaginal tablet 10 mcg vaginal 2XW #30 tabs 12/28/21 (Vagifem) Allergies Allergy/AdvReac Type Severity Reaction Status Date / Time aspirin [ASPIRIN] Allergy Severe FACE AND Verified 04/23/22 15:59 THROAT SWELLING ibuprofen [IBUPROFEN] Allergy Severe MOUTH Verified 04/23/22 15:59 SWELLING zolpidem [ZOLPIDEM] Allergy Severe THROAT Verified 04/23/22 15:59 SWELLING azithromycin [AZITHROMYCIN] Allergy Mild DIZZINESS Verified 04/23/22 15:59 guaifenesin [GUAIFENESIN] Allergy Mild DIZZY AND Verified 04/23/22 15:59 NAUSEA Penicillins [PENICILLINS] Allergy Mild FACIAL Verified 04/23/22 15:59 EDEMA AND HIVES lubrication Allergy Unknown Uncoded 04/23/22 15:59 Review of Systems Review of Systems Narrative: GENERAL: Denies chills, fatigue, malaise, fever, sweats, travel HEENT: Denies sinus pain, ear pain, sore throat, difficulty swallowing, neck pain RESPIRATORY: Denies dyspnea, cough, wheezing, hemoptysis, sputum. CARDIOVASCULAR: Denies chest pain, palpitations, orthopnea, edema GASTROINTESTINAL: Denies nausea, vomiting, abdominal pain, diarrhea, constipation, melena. : Denies dysuria, frequency, incontinence, hematuria, urinary retention, flank pain. MUSCULOSKELETAL: Denies weakness, joint pain, or bony pain SKIN: No rash, no erythema, no pruritus NEUROLOGIC: See HPI PSYCHIATRIC: No concerning psychosocial issues. 12 point review of systems is negative except for those stated above and HPI Patient History Medical History Dyspareunia due to medical condition in female patient Left sided abdominal pain Screening cholesterol level Surgical History History of tonsillectomy Social History marital status: household members: spouse Smoking Status: Never smoker alcohol intake: current substance use type: does not use Smoking Status: Never smoker alcohol intake frequency: 0-2 drinks per day Substance Use Type: does not use Exam Initial Vital Signs Initial Vital Signs: Vital Signs Temperature 96.8 F L 06/06/22 12:13 Pulse Rate 76 06/06/22 12:13 Respiratory Rate 16 06/06/22 12:13 Blood Pressure 212/100 H 06/06/22 12:13 Pulse Oximetry 99 06/06/22 12:13 Oxygen Delivery Method 06/06/22 12:13 GENERAL: Alert pleasant 57-year-old female and in no acute distress. HEENT: Head atraumatic,EOMI, pupils reactive, face symmetric, moist mucous membranes CARDIOVASCULAR: Regular rate and rhythm without murmurs, rubs or gallops. RESPIRATORY: Breath sounds equal bilaterally, no wheezes rales or rhonchi. ABDOMEN: Soft, nontender. Normoactive bowel sounds all 4 quadrants. No guarding or rebound. EXTREMITIES: Normal range of motion, no clubbing or edema. Neurovascularly intact NEUROLOGICAL: Alert and oriented x4.Normal gait and speech. Cranial nerves II through XII grossly intact. Good [id number], good bkkn-pw-hnen, strength equal bilaterally, no dysarthria or aphasia, sensation in tact to soft touch bilaterally, no visual changes, no facial droop SKIN: Warm, dry, no laceration, no petechiae, no rashes or lesions. Scores NIH Stroke Scale Level of Conciousness: Alert, keenly responsive Ask month/age: Answers both questions correctly. Open/close eyes, close hand: Performs both tasks correctly Best gaze horizontal: Normal Visual kraft: No visual loss Facial palsy: Normal symetrical movement Left arm drift: No drift for full 10 sec Right arm drift: No drift for full 10 sec Left leg drift: No drift for full 5 sec Right leg drift: No drift for full 5 sec Limb ataxia: Absent Sensory on face/arms/legs: Normal, no sensory loss Best language: No aphasia, normal Dysarthria: Normal Extinction or inattention: No abnormality Total NIH Stroke scale score: 0 Course Orders Ordered: ED Orders 06/06/22 12:19 XR chest 1V Stat 06/06/22 12:20 COVID19 -Nasal RAPID/Pre-Proc Stat Complete Blood Count AUTO DIFF Stat Comprehensive Metabolic Panel Stat Lipase Stat Magnesium Stat Partial Thromboplastin Time Stat Prothrombin Time INR Stat Troponin & CK Cardiac Panel Stat 06/06/22 12:25 CT head/brain wo con Stat 06/06/22 12:26 EKG-12 Lead Stat Vital Signs Vital signs: Vital Signs - 8 hr 06/06/22 12:13 Temperature 96.8 F L Pulse Rate 76 Respiratory Rate 16 Blood Pressure 212/100 H Pulse Oximetry 99 Oxygen Delivery Method Room Air Medical Decision Making Lab Data Result diagrams: 06/06/22 12:20 06/06/22 12:20 Labs: Lab Results 06/06/22 06/06/22 06/06/22 Range/Units 12:20 12:20 12:20 WBC 8.4 (4.5-11.0) X10^3/uL RBC 4.53 (4.0-5.2) X10^6/uL Hgb 13.6 (12.0-16.0) g/dL Hct 40.1 (36-46) % MCV 88.5 (80-100) fL MCH 29.9 (26-34) PG MCHC 33.8 (30-36) % RDW 13.6 (11.6-14.8) % Plt Count 239 (150-400) X10^3/uL Neut % (Auto) 44.6 L (50-75) % Lymph % (Auto) 45.2 H (25-40) % Glacier % (Auto) 7.8 (3-14) % Eos % (Auto) 2.0 (2-4) % Baso % (Auto) 0.4 (0-2) % Neut # (Auto) 3800 (0013-7107) /uL Lymph # (Auto) 3800 (9828-7640) /uL [place]acier # (Auto) 700 (0-900) /uL Eos # (Auto) 200 (0-450) /uL Baso # (Auto) 0 (0-100) /uL PT 11.2 (10.1-12.7) SECONDS INR 1.0 (0.9-1.3) APTT 29 (26-36) SECONDS Sodium (137-145) mmol/L Potassium (3.4-5.1) mmol/L Chloride (98-107) mmol/L Carbon Dioxide (22-32) mmol/L BUN (7-17) mg/dL Creatinine (0.52-1.04) mg/dL Estimated GFR (>60) mL/min BUN/Creatinine Ratio (6-22) Glucose (70-100) mg/dL Calcium (8.4-10.2) mg/dL Magnesium (1.6-2.3) mg/dL Total Bilirubin (0.2-1.3) mg/dL AST (14-36) IU/L ALT (<35) IU/L Alkaline Phosphatase (38-126) U/L Total Creatine Kinase (30-135) U/L CK-MB (CK-2) CK-MB (CK-2) Rel Index Troponin I (0.01-0.034) ng/mL Total Protein (6.3-8.2) g/dL Albumin (3.5-5.0) g/dL Globulin (1.7-4.1) g/dL Albumin/Globulin Ratio (1.0-2.8) Lipase (23-300) U/L SARS-CoV-2 (PCR) Negative (Negative) 06/06/22 Range/Units 12:20 WBC (4.5-11.0) X10^3/uL RBC (4.0-5.2) X10^6/uL Hgb (12.0-16.0) g/dL Hct (36-46) % MCV (80-100) fL MCH (26-34) PG MCHC (30-36) % RDW (11.6-14.8) % Plt Count (150-400) X10^3/uL Neut % (Auto) (50-75) % Lymph % (Auto) (25-40) % Glacier % (Auto) (3-14) % Eos % (Auto) (2-4) % Baso % (Auto) (0-2) % Neut # (Auto) (1421-8665) /uL Lymph # (Auto) (2904-6264) /uL Glacier # (Auto) (0-900) /uL Eos # (Auto) (0-450) /uL Baso # (Auto) (0-100) /uL PT (10.1-12.7) SECONDS INR (0.9-1.3) APTT (26-36) SECONDS Sodium 140 (137-145) mmol/L Potassium 3.7 (3.4-5.1) mmol/L Chloride 106 (98-107) mmol/L Carbon Dioxide 25 (22-32) mmol/L BUN 19 H (7-17) mg/dL Creatinine 0.71 (0.52-1.04) mg/dL Estimated GFR > 60 (>60) mL/min BUN/Creatinine Ratio 26.8 H (6-22) Glucose 134 H (70-100) mg/dL Calcium 9.1 (8.4-10.2) mg/dL Magnesium 2.0 (1.6-2.3) mg/dL Total Bilirubin 0.5 (0.2-1.3) mg/dL AST 22 (14-36) IU/L ALT 14 (<35) IU/L Alkaline Phosphatase 63 (38-126) U/L Total Creatine Kinase 51 (30-135) U/L CK-MB (CK-2) TNP CK-MB (CK-2) Rel Index TNP Troponin I < 0.012 (0.01-0.034) ng/mL Total Protein 7.2 (6.3-8.2) g/dL Albumin 4.4 (3.5-5.0) g/dL Globulin 2.8 (1.7-4.1) g/dL Albumin/Globulin Ratio 1.6 (1.0-2.8) Lipase 122 (23-300) U/L SARS-CoV-2 (PCR) (Negative) Imaging Data CT scan - head: Radiologist's Impression: t: Ria Ag MR#: [id number] : 1965 Acct:[id number] Age/Sex: 57 / F Date of Service: 06/06/22 Loc: ED Accession Number: [id number] ?? Procedure: CT head/brain wo con Ordering Provider: Phyllis Ham D.O. PROCEDURE:? CT HEAD/BRAIN WO CON ? INDICATIONS:? headache/lightheaded/R sided weakness/ COVID+ ? TECHNIQUE:? Noncontrast 4.5 mm thick angled axial sections acquired from the foramen magnum to the vertex, with coronal and sagittal reformats.? For radiation dose reduction, the following was used:? automated exposure control, adjustment of mA and/or kV according to patient size.? ? COMPARISON:? [facility], CT, HEAD WITHOUT CONTRAST, 03/17/2012, 12:47. ? FINDINGS:? Image quality:? Excellent.? ? CSF spaces:? Basal cisterns are patent.? No extra-axial fluid collections.? Ventricles are normal in size and shape.? ? Brain:? No midline shift.? No intracranial masses or hemorrhage.? Carmichael-white matter interface is normal.? ? Skull and face:? Calvarium and visualized facial bones are intact, without suspicious lesions.? ? Sinuses:? Visualized sinuses and mastoids are clear.? ? IMPRESSION:? Unremarkable CT brain ? ? ? Approved by: Jordi Johnson M.D. on 06/06/2022 at 11:41? Chest x-ray: Radiologist's Impression: XRay Report Signed Patient: Ria Ag MR#: [id number] : 1965 Acct:[id number] Age/Sex: 57 / F Date of Service: 06/06/22 Loc: ED Accession Number: [id number] ?? Procedure: XR chest 1V Ordering Provider: Phyllis Ham D.O. PROCEDURE:? XR CHEST 1V ? INDICATIONS:? chest pain ? TECHNIQUE:? One view of the chest was acquired.? ? COMPARISON:? [facility], CR, XR CHEST 1V, 04/04/2021, 14:52. ? FINDINGS:? ? Surgical changes and devices:? None.? ? Lungs and pleura:? Prominent lung volumes.? Lungs appear clear.? No pleural effusions or pneumothorax.? ? Mediastinum:? Mediastinal contours appear normal.? Heart size is normal.? ? Bones and chest wall:? No suspicious bony lesions.? Overlying soft tissues appear unremarkable.? ? IMPRESSION:? No acute cardiopulmonary abnormality. ? ? ? Dictated by: Demetrius Domínguez M.D. on 06/06/2022 at 13:11 ? ? Approved by: Demetrius Domínguez M.D. on 06/06/2022 at 13:12 ? ECG Data Interpretation: Normal sinus rhythm rate 62 IL interval 128 QRS [address] changes Q waves noted in inferior and lateral similar to previous MDM Narrative Medical decision making narrative: Patient had mild head pressure. Noted to be hypertensive in the ED but no other signs or symptoms of stroke NIH Stroke Scale of 0. No chest pain no signs of end-organ damage. She has no prior history of hypertension. At this time recommend monitoring blood pressure at home with outpatient follow-up and return if needed. Discharge Plan Departure Patient Disposition: Home Clinical Impression: Headache, Hypertension Instructions: DI for High Blood Pressure Activity Restrictions/Additional Instructions: *You have been diagnosed with headache, elevated blood pressure *What to do: At this time please monitor blood pressure at home. Take once a day and reported. This may or may not be related to some of your symptoms. *Continue to take medications as directed *Follow up with your primary care provider in 2-3 days or call [phone] *Return to ER if you should have blood pressure greater than 190/100, worsening headache have had chest pain or any new, worsening or concerning symptoms Prescriptions: No Action sodium,potassium,mag sulfates 17.5-3.13-1.6 gram recon soln 177 ml PO DAILY Qty: 354 0RF Rx Instructions: Please take medication per [facility] written instructions. estradiol [Vagifem] 10 mcg tablet 10 mcg vaginal 2XW Qty: 30 4RF Rx Instructions: Apply 1 tablet PV HS twice weekly omega-3 fatty acids Capsule 1,000 mg PO DAILY Multi Complete with Iron 18-400 mg-mcg Tablet 1 tab PO DAILY cholecalciferol (vitamin D3) [Vitamin D3] 125 mcg (5,000 unit) Tablet 250 mcg PO DAILY vitamin [id number] acid 500-400 mcg Tablet 1 tab PO DAILY Calcium Magnesium 500 mg calcium -250 mg Tablet 1 tab PO DAILY Referrals: Iglesia Henao MD [Primary Care Provider] - Visit Report Forms: Patient Portal/API
[2022-06-06 16:20] VITALS: BP 179/84; O2SAT 99
[2022-06-06 16:30] VITALS: BP 185/64; PULSE 55; O2SAT 99
== END 2022-06-06 16:44 | disposition home or self-care (01) ==
PROVIDERS: Emergency Provider Emergency Medicine; PCP Family Medicine
DX: R51.9 Headache, unspecified (principal); I10 Essential (primary) hypertension; R53.1 Weakness; Z20.822 Contact with and (suspected) exposure to COVID-19
CPT/HCPCS: 36415; 70450; 71045; 80053; 82550; 83690; 83735; 84484; 85025; 85610; 85730; 87635; 93005; 99283; C9803

== ENCOUNTER → 2022-06-21 10:17 | Outpatient (CLI) | payer OTHER, SELFPAY ==
--- NOTE | 2022-07-10 16:09 | PM.CARDMON.1 ---
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 & Results Date Patient Seen: 06/21/22 Requesting provider: Lisa Seay Indication: Syncope Duration of monitoring (days): 14 Diary information: There were 32 patient triggered events and 14 patient diary entries Patient triggered events were variably associated with (within 45 seconds) sinus rhythm, PACs including SVT as well as PVCs including ventricular bigeminy Patient diary events were associated with PVCs and sinus rhythm Data: Minimum heart rate identified was 39 beats per minute at 02:34 on 06/25/2022 Maximum sinus heart rate was 160 beats per minute at 14:34 on 06/26/2022 Maximum overall heart rate was 164 beats per minute at 23:33 on 07/02/2022 during a run of SVT Less than 1% of identified beats were ventricular or supraventricular ectopic in origin, which would classify them as rare. There were 2 runs of SVT the fastest being a 5 beat run above rate of 164 the longest lasting 6 beats There were no episodes of atrial fibrillation or pauses of 3 seconds or longer identified on this study Impression: 14 day quality assurance monitor final demonstrating multiple dysrhythmias as above that were marked by patient as a possible triggered event Patient events not appear to be associated with any one particular dysrhythmia Clinical correlation suggested
== END ==
PROVIDERS: PCP Family Medicine; Referring Provider Physician Assistant; Visit Provider Physician Assistant
DX: R55 Syncope and collapse (principal); R00.2 Palpitations; I49.3 Ventricular premature depolarization
CPT/HCPCS: 93246; 93248

== ENCOUNTER → 2022-07-10 09:23 | Outpatient (CLI) | payer OTHER, SELFPAY ==
[2022-07-10 10:49] LABS: Hemoglobin A1C% w Est Avg Glu 5.4 % (4.0-6.0)
[2022-07-10 10:56] LABS: Cholesterol 198 mg/dL (140-199); HDL Cholesterol 64 mg/dL (40-60); LDL Cholesterol Calculated 107 mg/dL (<100); Triglycerides 135 mg/dL (35-150)
[2022-07-10 11:29] LABS: TSH w/ Reflex to FT4 2.44 uIU/mL (0.47-4.68)
== END ==
PROVIDERS: PCP Family Medicine; Referring Provider Physician Assistant; Visit Provider Physician Assistant
DX: E78.5 Hyperlipidemia, unspecified (principal); I10 Essential (primary) hypertension; R73.9 Hyperglycemia, unspecified; I49.3 Ventricular premature depolarization
CPT/HCPCS: 36415; 80061; 83036; 84443

== ENCOUNTER → 2022-07-16 08:09 | Outpatient (CLI) | payer OTHER, SELFPAY ==
[2022-07-16 09:51] LABS: Alanine Aminotransferase 14 IU/L (<35); Albumin 4.1 g/dL (3.5-5.0); Albumin Globulin Ratio 1.5 (1.0-2.8); Alkaline Phosphatase 64 U/L (38-126); Aspartate Aminotransferase 22 IU/L (14-36); BUN Creatinine Ratio 24.6 (6-22); Bilirubin Total 0.7 mg/dL (0.2-1.3); Blood Urea Nitrogen 14 mg/dL (7-17); Calcium 8.7 mg/dL (8.4-10.2); Carbon Dioxide 28 mmol/L (22-32); Chloride 105 mmol/L (98-107); Cholesterol 197 mg/dL (140-199); Estimated Glomerular Filt Rate > 60 mL/min (>60); Globulin 2.8 g/dL (1.7-4.1); Glucose 96 mg/dL (70-100); HDL Cholesterol 60 mg/dL (40-60); HEMOLYSIS < 15 (0-50); LDL Cholesterol Calculated 113 mg/dL (<100); Magnesium 2.1 mg/dL (1.6-2.3); Potassium 3.7 mmol/L (3.4-5.1); Sodium 138 mmol/L (137-145); Total Protein 6.9 g/dL (6.3-8.2); Triglycerides 122 mg/dL (35-150)
[2022-07-16 11:31] LABS: Thyroid Stimulating Hormone 2.44 uIU/mL (0.47-4.68)
[2022-07-25 11:51] LABS: Metanephrine,Plasma 45.6 pg/mL (0.0-88.0)
== END ==
PROVIDERS: PCP Family Medicine; Referring Provider Internal Medicine Cardiovascular Disease; Visit Provider Internal Medicine Cardiovascular Disease
DX: R03.0 Elevated blood-pressure reading, without diagnosis of hypertension (principal); I49.3 Ventricular premature depolarization; R00.2 Palpitations; E78.5 Hyperlipidemia, unspecified
CPT/HCPCS: 36415; 80053; 80061; 82088; 83735; 83835; 84443

== ENCOUNTER → 2022-07-17 15:55 | Outpatient (CLI) | payer OTHER, SELFPAY ==
[2022-07-20 18:43] LABS: Normetanephrine Total 374 ug/24 hr (131-612); Urine, Metanephrine 83 ug/L (Undefined); Urine, Normetanephrine 170 ug/L (Undefined)
== END ==
PROVIDERS: PCP Family Medicine; Referring Provider Internal Medicine Cardiovascular Disease; Visit Provider Internal Medicine Cardiovascular Disease
DX: R03.0 Elevated blood-pressure reading, without diagnosis of hypertension (principal); I49.3 Ventricular premature depolarization; R00.2 Palpitations; E78.5 Hyperlipidemia, unspecified
CPT/HCPCS: 83835

== ENCOUNTER → 2022-11-05 15:52 | Outpatient (CLI) | payer OTHER, SELFPAY ==
--- NOTE | 2022-11-05 16:00 | DI.MG.S_ITS ---
BILATERAL DIGITAL SCREENING MAMMOGRAM 3D/2D WITH CAD: 11/05/2022 CLINICAL: Routine screening. Comparison is made to exams dated: 10/10/2021 mammogram, 08/25/2020 mammogram, and 05/04/2019 mammogram - [facility]. Both breasts are heterogeneously dense, which may obscure small masses (category c / 51-75% glandular tissue). Current study was also evaluated with a Computer Aided Detection (CAD) system. There is a new irregular low density asymmetry with a spiculated margin in the right breast middle depth superior region seen on the mediolateral oblique view only. There also is an oval equal density asymmetry in the right breast middle depth superior region seen on the mediolateral oblique view only. This is more prominent and increased in size. No other significant masses, calcifications, or other findings are seen in either breast. IMPRESSION: INCOMPLETE: NEEDS ADDITIONAL IMAGING EVALUATION The new irregular low density asymmetry in the right breast middle depth superior region seen on the mediolateral oblique view only is indeterminate. Additional views with possible ultrasound are recommended. The oval equal density asymmetry in the right breast middle depth superior region seen on the mediolateral oblique view only is indeterminate. Additional views with possible ultrasound are recommended. Based on the Tyrer Cuzick model (a risk assessment model) the patient's lifetime risk is 10.5% and her 10 year risk is 4.1%. According to the ACR, ACS, and NCCN guidelines, an annual breast MRI exam along with mammogram is recommended if the patient's lifetime risk is 20% or greater. This exam was interpreted at Station ID: [id number]. NOTE: For mammograms, a report in lay terms will be sent to the patient. Approximately 15% of breast malignancies will not be visualized mammographically. In the management of a palpable breast mass, a negative mammogram must not discourage biopsy of a clinically suspicious lesion. Electronically Signed By: Beena irving/flash:11/06/2022 09:51:56 copy to: Genaro Leone letter sent: Additional Imaging Needed ACR BI-RADS Category 0: Incomplete 3340F
== END ==
PROVIDERS: PCP Family Medicine; Referring Provider Family Medicine; Visit Provider Family Medicine
DX: Z12.31 Encounter for screening mammogram for malignant neoplasm of breast (principal); N64.89 Other specified disorders of breast
CPT/HCPCS: 77063; 77067

== ENCOUNTER → 2022-11-27 09:26 | Outpatient (CLI) | payer OTHER, SELFPAY ==
--- NOTE | 2022-11-27 | DI.MG.S_ITS ---
UNILATERAL RIGHT DIGITAL DIAGNOSTIC MAMMOGRAM 3D/2D WITH ADDITIONAL VIEWS: 11/27/2022 CLINICAL: Additional evaluation requested from prior study. Comparison is made to exams dated: 11/05/2022 mammogram, 10/10/2021 mammogram, and 08/25/2020 mammogram - [facility]. The right breast is heterogeneously dense, which may obscure small masses (category c / 51-75% glandular tissue). The asymmetries in the right breast seen on the mediolateral oblique view only are not seen on additional views. No other significant masses or calcifications are seen in the breast. IMPRESSION: BENIGN The right breast asymmetries seen on the screening mammogram likely respresent superimposed fibroglandular tissue and are benign. There is no mammographic evidence of malignancy. A 1 year screening mammogram is recommended. Based on the Tyrer Cuzick model (a risk assessment model) the patient's lifetime risk is 10.5% and her 10 year risk is 4.1%. According to the ACR, ACS, and NCCN guidelines, an annual breast MRI exam along with mammogram is recommended if the patient's lifetime risk is 20% or greater. This exam was interpreted at Station ID: [id number]. NOTE: For mammograms, a report in lay terms will be sent to the patient. Approximately 15% of breast malignancies will not be visualized mammographically. In the management of a palpable breast mass, a negative mammogram must not discourage biopsy of a clinically suspicious lesion. Electronically Signed By: Lynn Serra M.D. lk/:11/27/2022 09:57:28 copy to: Genaro Leone letter sent: Normal Exam ACR BI-RADS Category 2: Benign Finding(s) 3342F
== END ==
PROVIDERS: PCP Family Medicine; Referring Provider Family Medicine; Visit Provider Family Medicine
DX: R92.8 Other abnormal and inconclusive findings on diagnostic imaging of breast (principal)
CPT/HCPCS: 77065; G0279

== ENCOUNTER → 2024-05-14 07:17 | Outpatient (CLI) | payer OTHER, SELFPAY ==
--- NOTE | 2024-05-14 07:18 | DI.US.S_ITS ---
PROCEDURE: US ABDOMEN LIMITED INDICATIONS: RUQ PAIN TECHNIQUE: Real-time focused scanning was performed of the abdomen, with image documentation. COMPARISON: None. FINDINGS: The liver is normal in size and demonstrates no suspicious lesions. No findings of gallstones or sludge are seen. The gallbladder wall is not thickened, measuring 3 mm or less. No specific pericholecystic fluid is seen. The sonographic Bazan sign is negative. There is no biliary dilatation, the common bile duct measures 5 mm. No significant pancreatic abnormality is seen on these images. IMPRESSION: The gallbladder demonstrates a normal sonographic appearance. No biliary dilatation is seen. No significant liver abnormality is seen by ultrasound. Dictated by: Noam Juárez M.D. on 05/14/2024 at 13:50 Approved by: Noam Juárez M.D. on 05/14/2024 at 13:50
[2024-05-14 08:59] LABS: Alanine Aminotransferase 18 IU/L (<35); Albumin 4.3 g/dL (3.5-5.0); Albumin Globulin Ratio 1.9 (1.0-2.8); Alkaline Phosphatase 65 U/L (38-126); Aspartate Aminotransferase 23 IU/L (14-36); BUN Creatinine Ratio 22.2 (6-22); Bilirubin Total 0.7 mg/dL (0.2-1.3); Blood Urea Nitrogen 14 mg/dL (7-17); Calcium 9.3 mg/dL (8.4-10.2); Carbon Dioxide 26 mmol/L (22-32); Chloride 106 mmol/L (98-107); Estimated Glomerular Filt Rate > 60 mL/min (>60); Globulin 2.3 g/dL (1.7-4.1); Glucose 104 mg/dL (80-110); HEMOLYSIS < 15 (0-50); Potassium 4.2 mmol/L (3.4-5.1); Sodium 136 mmol/L (137-145); Total Protein 6.6 g/dL (6.3-8.2)
== END ==
PROVIDERS: PCP Family Medicine; Referring Provider Physician Assistant; Visit Provider Physician Assistant
DX: R10.11 Right upper quadrant pain (principal)
CPT/HCPCS: 36415; 76705; 80053

== ENCOUNTER → 2024-10-03 13:15 | Outpatient (CLI) | payer OTHER, SELFPAY ==
[2024-10-03 17:36] LABS: Adenovirus Not Detected (Not Detect); B. parapertussis Not Detected (Not Detecte); Bordetella pertussis Not Detected (Not Detect); Chlamydophila pneumoniae Not Detected (Not Detect); Coronavirus 229E Not Detected (Not Detect); Coronavirus HKU1 Not Detected (Not Detect); Coronavirus NL 63 Not Detected (Not Detect); Coronavirus OC43 Not Detected (Not Detect); Human Metapneumovirus Not Detected (Not Detect); Human Rhinovirus/Enterovirus Not Detected (Not Detect); Influenza A H1-2009 Detected (Not Detect); Influenza B Not Detected (Not Detect); Mycoplasma pneumoniae Not Detected (Not Detect); Parainfluenza Virus 1 Not Detected (Not Detect); Parainfluenza Virus 2 Not Detected (Not Detect); Parainfluenza Virus 3 Not Detected (Not Detect); Parainfluenza Virus 4 Not Detected (Not Detect); Respiratory Syncytial Virus Not Detected (Not Detect); SARS- CoV-2 Not Detected (Not Detecte)
== END ==
PROVIDERS: PCP Family Medicine; Visit Provider Physician Assistant Medical
DX: J02.9 Acute pharyngitis, unspecified (principal); R05.9 Cough, unspecified; R09.89 Other specified symptoms and signs involving the circulatory and respiratory systems
CPT/HCPCS: 87633

== ENCOUNTER → 2024-10-03 13:43 | Outpatient (CLI) | payer OTHER, SELFPAY ==
--- NOTE | 2024-10-03 13:44 | DI.RAD.S_ITS ---
PROCEDURE: XR CHEST 2V INDICATIONS: Cough and SOB TECHNIQUE: 2 views of the chest were acquired. COMPARISON: [facility], CR, XR CHEST 1V, 06/06/2022, 12:44. [facility], CR, XR CHEST 1V, 04/04/2021, 14:52. FINDINGS: Surgical changes and devices: None. Lungs and pleura: No dense consolidation or pleural effusions. Mediastinum: Normal heart size, unchanged Bones and chest wall: Unremarkable IMPRESSION: No acute radiographic abnormality. Dictated by: Maximino Buck M.D. on 10/03/2024 at 13:13 Approved by: Maximino Buck M.D. on 10/03/2024 at 13:14
== END ==
PROVIDERS: PCP Family Medicine; Referring Provider Physician Assistant Medical; Visit Provider Physician Assistant Medical
DX: R05.9 Cough, unspecified (principal); R09.89 Other specified symptoms and signs involving the circulatory and respiratory systems
CPT/HCPCS: 71046; 87633

== ENCOUNTER 2024-10-06 07:45 | Emergency (ER) | payer OTHER, SELFPAY ==
[2024-10-06 07:55] VITALS: BP 139/72; PULSE 100; RESP 14; TEMP 37.2; O2SAT 97; BMI 23.3
--- NOTE | 2024-10-06 08:06 | ED_ITS ---
HPI - URI/Sore Throat General Chief Complaint: Upper Respiratory Symptoms Stated Complaint: gettting sicker, running a fever Time Seen by Provider: 10/06/24 08:06 Source: patient Mode of arrival: Family Vehicle History of Present Illness HPI Narrative: Patient is a 59-year-old healthy female who has known influenza a diagnosed on October 03 presenting today with ongoing symptoms. She reports that symptoms have actually been going on for 10 days. Reports that the cough is nonstop. She has been taking [id number] medications that can not sleep. Denies shortness of breath. Still having weakness she is able to drink fluids but decreased appetite. No significant body aches. She also reports that her has been has some conjunctivitis she feels like her left eye is little bit red and draining as well Related Data Home Medications Medication Instructions Recorded Confirmed cholecalciferol (vitamin D3) 125 250 mcg PO DAILY 09/06/20 10/03/24 mcg (5,000 unit) tablet (Vitamin D3) multivitamin-ferrous 1 tab PO DAILY 09/06/20 10/03/24 fumarate-folic acid 18 mg-400 mcg tablet (Multi Complete with Iron) Previous Rx's Medication Instructions Recorded dextroamphetamine-amphetamine ER 25 mg PO QDAY #30 caps 11/28/16 25 mg 24hr capsule,extend release (Adderall XR) estradiol 10 mcg vaginal tablet 10 mcg vaginal 2XW #30 tabs 09/02/23 (Vagifem) oseltamivir 75 mg capsule (Tamiflu) 75 mg PO BID 5 days #10 caps 10/03/24 benzonatate 200 mg capsule 200 mg PO TID PRN cough #20 caps 10/06/24 doxycycline hyclate 100 mg capsule 100 mg PO BID #14 caps 10/06/24 gentamicin 0.3 % eye drops 2 drp EYE-LEFT Q4HRWA #5 mL 10/06/24 hydrocodone 5 mg-acetaminophen 325 1 tab PO Q6H PRN pain #10 tabs 10/06/24 mg tablet prednisone 20 mg tablet 40 mg (2 x 20 mg) PO DAILY #10 tabs 10/06/24 Allergies Allergy/AdvReac Type Severity Reaction Status Date / Time aspirin [ASPIRIN] Allergy Severe Swelling Verified 10/06/24 08:58 of Lip/Tongue/Throat ibuprofen [IBUPROFEN] Allergy Severe Swelling Verified 10/06/24 08:58 of Lip/Tongue/Throat zolpidem [ZOLPIDEM] Allergy Severe Anaphylaxis Verified 10/06/24 08:58 azithromycin [AZITHROMYCIN] Allergy Mild Dizziness Verified 10/06/24 08:58 guaifenesin [GUAIFENESIN] Allergy Mild Dizziness Verified 10/06/24 08:58 Penicillins [PENICILLINS] Allergy Mild Swelling Verified 10/06/24 08:58 of Lip/Tongue/Throat lisinopril AdvReac Mild Verified 10/03/24 12:39 lubrication Allergy Unknown Uncoded 10/03/24 12:39 Patient History Medical History Dyspareunia due to medical condition in female patient Left sided abdominal pain Screening cholesterol level Surgical History History of tonsillectomy Social History marital status: household members: spouse Smoking Status: Never smoker alcohol intake: current substance use type: does not use Smoking Status: Never smoker alcohol intake frequency: 0-2 drinks per day Exam Initial Vital Signs Initial Vital Signs: Vital Signs Temperature 98.9 F 10/06/24 07:55 Pulse Rate 100 H 10/06/24 07:55 Respiratory Rate 14 10/06/24 07:55 Blood Pressure 139/72 10/06/24 07:55 Pulse Oximetry 97 10/06/24 07:55 Oxygen Delivery Method Room Air 10/06/24 07:55 GENERAL: Alert 59-year-old female appears to not feel well but no acute distress and nontoxic HEENT: Head atraumatic,EOMI, pupils reactive, left eye mild injected conjunctiva face symmetric, moist mucous membranes CARDIOVASCULAR: Regular rate and rhythm without murmurs, rubs or gallops. RESPIRATORY: Breath sounds equal bilaterally, no wheezes rales or rhonchi. ABDOMEN: Soft, nontender. Normoactive bowel sounds all 4 quadrants. No guarding or rebound. EXTREMITIES: Normal range of motion, no clubbing or edema. Neurovascularly intact NEUROLOGICAL: Alert and oriented x4.Normal gait and speech. SKIN: Warm, dry, no laceration, no petechiae, no rashes or lesions. Course Orders Ordered: ED Orders 10/06/24 08:07 Chest [XR chest 2V] Stat 10/06/24 08:15 CBC Auto Diff [Complete Blood Count AUTO DIFF] Stat CMP [Comprehensive Metabolic Panel] Stat CPK [Creatine Kinase] Stat Lactate (Lactic Acid) Stat Discontinued Medications Albuterol (Albuterol 2.5 Mg/3 Ml Neb (Adult)) 2.5 mg INH NOW ONE Stop: 10/06/24 08:22 Last Admin: 10/06/24 08:41 Dose: 2.5 mg Documented By: CARLENE Benzonatate (Benzonatate 100 Mg Capsule) 100 mg PO NOW ONE Stop: 10/06/24 08:58 Last Admin: 10/06/24 09:01 Dose: 100 mg Documented By: RESHMA Vital Signs Vital signs: Vital Signs - 8 hr 10/06/24 07:55 10/06/24 08:45 10/06/24 10:10 Temperature 98.9 F Pulse Rate 100 H 88 Respiratory Rate 14 17 Blood Pressure 139/72 119/66 Pulse Oximetry 97 97 98 Oxygen Delivery Method Room Air Room Air Room Air MDM - URI/Sore Throat Lab Data 10/06/24 08:15 10/06/24 08:15 Labs: Lab Results 10/06/24 Range/Units 08:15 WBC 13.9 H (4.5-11.0) X10^3/uL RBC 4.16 (4.0-5.2) X10^6/uL Hgb 12.3 (12.0-16.0) g/dL Hct 36.4 (36-46) % MCV 87.4 (80-100) fL MCH 29.6 (26-34) PG MCHC 33.9 (30-36) % RDW 13.2 (11.6-14.8) % Plt Count 227 (150-400) X10^3/uL Neut % (Auto) 76.7 H (50-75) % Lymph % (Auto) 12.1 L (25-40) % Stone % (Auto) 10.5 (3-14) % Eos % (Auto) 0.5 L (2-4) % Baso % (Auto) 0.2 (0-2) % Neut # (Auto) 27917 H (3626-7640) /uL Lymph # (Auto) 1700 (6559-9734) /uL Stone # (Auto) 1500 H (0-900) /uL Eos # (Auto) 100 (0-450) /uL Baso # (Auto) 0 (0-100) /uL Sodium 137 (137-145) mmol/L Potassium 3.4 (3.4-5.1) mmol/L Chloride 105 (98-107) mmol/L Carbon Dioxide 24 (22-32) mmol/L BUN 7 (7-17) mg/dL Creatinine 0.59 (0.52-1.04) mg/dL Estimated GFR > 60 (>60) mL/min BUN/Creatinine Ratio 11.9 (6-22) Glucose 124 H (80-110) mg/dL Lactate 0.8 (0.7-2.1) mmol/L Calcium 8.8 (8.4-10.2) mg/dL Total Bilirubin 1.1 (0.2-1.3) mg/dL AST 35 (14-36) IU/L ALT 31 (<35) IU/L Alkaline Phosphatase 93 (38-126) U/L Total Creatine Kinase 66 (30-135) U/L Total Protein 7.2 (6.3-8.2) g/dL Albumin 4.2 (3.5-5.0) g/dL Globulin 3.0 (1.7-4.1) g/dL Albumin/Globulin Ratio 1.4 (1.0-2.8) Imaging Data Chest x-ray: Radiologist's Impression: RE: XR CHEST 2V INDICATIONS: Influenza TECHNIQUE: 2 views of the chest were acquired. COMPARISON: [facility], , XR CHEST 2V, 10/03/2024, 13:57. FINDINGS: Surgical changes and devices: None. Lungs and pleura: Mild peribronchial cuffing is seen. No focal infiltrate. No pleural effusions or pneumothorax. Mediastinum: Mediastinal contours are normal. Heart size is normal. Bones and chest wall: No suspicious bony abnormalities. Soft tissues appear unremarkable. IMPRESSION: Suggestion of reactive airway disease such as bronchitis or viral illness. No focal infiltrate, pneumothorax. Dictated by: Dre Helms M.D. on 10/06/2024 at 8:29 MDM Narrative Medical decision making narrative: 59-year-old female presents today with ongoing cough. Diagnosed with influenza on the but has had symptoms ongoing for 10 days. Blood work does show some mild leukocytosis of 13, lactic acid of 0.8, CPK 66 Chest x-ray does show some peribronchial thickening She was given albuterol coughed more it did not seem to help. She was then given some Tessalon Perles. Vitals are stable no hypoxia. She has not dehydrated. She appears to not feel well does not meet any admission criteria. She is multiple allergies to medications. I do think reasonable to start on antibiotics and steroids to see if she has improvement. She is allergic to guaifenesin, [place] given for significant cough. Discharge Plan Departure Patient Disposition: Home Clinical Impression: Influenza A, Conjunctivitis Instructions: DI for Influenza -- Adult Activity Restrictions/Additional Instructions: *You have been diagnosed with influenza a *What to do: At this time less try antibiotic some steroids and other medication to help with your cough. Stay hydrated as best you can *Continue to take medications as directed Prednisone 40 mg once a day for 5 days (steroid help with inflammation) Doxycycline 100 mg twice a day for 7 days antibiotic Benzonatate 100mg 3 times a day as needed for cough [place] 1 tablet at night if needed for severe coughing (pain medication but helps with cough) *Follow up with your primary care provider in 2-3 days or call [phone] *Return to ER if you should have inability to tolerate fluids increasing shortness of breath [or] any new, worsening or concerning symptoms CONTROLLED SUBSTANCE DISCHARGE (Narcotoic/benzodiazepine/Flexeril/Phenergan) 1. You have been prescribed narcotic medications, it does have acetaminophen/Tylenol/paracetamol in it, DO NOT TAKE MORE THAN 4,00mg in 24 hours of Tylenol. TRAMADOL DOES NOT CONTAIN TYLENOL 2. Please understand that we cannot provide further refills of narcotics, benzodiazepines or controlled substances through the ED and her pain management will need to be through your provider. 3. While on these medications you cannot drive or operate heavy machinery. 4. You cannot sign legal documents or perform any duties such as this. 5. As long as you're taking opiate pain medications he should also be taking a stool softener such as Colace, Dulcolax, MiraLAX or prune juice, to help avoid constipation. Prescriptions: New doxycycline hyclate 100 mg capsule 100 mg PO BID Qty: 14 0RF benzonatate 200 mg capsule 200 mg PO TID PRN (Reason: cough) Qty: 20 0RF hydrocodone-acetaminophen 5-325 mg tablet 1 tab PO Q6H PRN (Reason: pain) Qty: 10 0RF prednisone 20 mg tablet 40 mg PO DAILY Qty: 10 0RF gentamicin 0.3 % drops 2 drp EYE-LEFT Q4HRWA Qty: 5 0RF No Action oseltamivir [Tamiflu] 75 mg capsule 75 mg PO BID 5 Days Qty: 10 0RF estradiol [Vagifem] 10 mcg tablet 10 mcg vaginal 2XW Qty: 30 4RF Rx Instructions: Apply 1 tablet PV HS twice weekly dextroamphetamine-amphetamine [Adderall XR] 25 mg capsule,extended release 24hr 25 mg PO QDAY Qty: 30 0RF Multi Complete with Iron 18-400 mg-mcg Tablet 1 tab PO DAILY cholecalciferol (vitamin D3) [Vitamin D3] 125 mcg (5,000 unit) Tablet 250 mcg PO DAILY Referrals: Iglesia Henao MD [Primary Care Provider] - Stand Alone Forms: Patient Portal/API/Survey
[2024-10-06 08:33] LABS: Add Manual Diff / Slide Review NO; Basophils Absolute Auto 0 /uL (0-100); Basophils Percent Auto 0.2 % (0-2); Eosinophils Absolute Auto 100 /uL (0-450); Eosinophils Percent Auto 0.5 % (2-4); Hematocrit 36.4 % (36-46); Hemoglobin 12.3 g/dL (12.0-16.0); Lymphocytes Absolute Auto 1700 /uL (1100-4500); Lymphocytes Percent Auto 12.1 % (25-40); Mean Corpuscular HGB Conc 33.9 % (30-36); Mean Corpuscular Hemoglobin 29.6 PG (26-34); Mean Corpuscular Volume 87.4 fL (80-100); Monocytes Absolute Auto 1500 /uL (0-900); Monocytes Percent Auto 10.5 % (3-14); Neutrophils Absolute Auto 10600 /uL (1500-7000); Neutrophils Percent Auto 76.7 % (50-75); Platelet Count 227 X10^3/uL (150-400); Red Blood Cell Count 4.16 X10^6/uL (4.0-5.2); Red Cell Distribution Width 13.2 % (11.6-14.8); White Blood Cell Count 13.9 X10^3/uL (4.5-11.0)
[2024-10-06] MEDS: ALBUTEROL 2.5 MG/3 ML NEB (ADULT) INH (08:41)
[2024-10-06 08:45] VITALS: O2SAT 97
[2024-10-06 08:45] LABS: Lactate (Lactic Acid) 0.8 mmol/L (0.7-2.1)
[2024-10-06 08:46] LABS: Alanine Aminotransferase 31 IU/L (<35); Albumin 4.2 g/dL (3.5-5.0); Albumin Globulin Ratio 1.4 (1.0-2.8); Alkaline Phosphatase 93 U/L (38-126); Aspartate Aminotransferase 35 IU/L (14-36); BUN Creatinine Ratio 11.9 (6-22); Bilirubin Total 1.1 mg/dL (0.2-1.3); Blood Urea Nitrogen 7 mg/dL (7-17); Calcium 8.8 mg/dL (8.4-10.2); Carbon Dioxide 24 mmol/L (22-32); Chloride 105 mmol/L (98-107); Creatine Kinase 66 U/L (30-135); Estimated Glomerular Filt Rate > 60 mL/min (>60); Glucose 124 mg/dL (80-110); HEMOLYSIS < 15 (0-50); Potassium 3.4 mmol/L (3.4-5.1); Sodium 137 mmol/L (137-145); Total Protein 7.2 g/dL (6.3-8.2)
[2024-10-06] MEDS: BENZONATATE 100 MG CAPSULE PO (09:01)
[2024-10-06 10:10] VITALS: BP 119/66; PULSE 88; RESP 17; O2SAT 98
== END 2024-10-06 10:11 | disposition home or self-care (01) ==
PROVIDERS: Emergency Provider Emergency Medicine; PCP Family Medicine
DX: J10.1 Influenza due to other identified influenza virus with other respiratory manifestations (principal); H10.9 Unspecified conjunctivitis
CPT/HCPCS: 36415; 71046; 80053; 82550; 83605; 85025; 94640; 99284; J7613

== ENCOUNTER → 2025-07-13 09:47 | Outpatient (CLI) | payer OTHER, SELFPAY ==
[2025-07-13 10:57] LABS: Add Manual Diff / Slide Review NO; Hematocrit 40.9 % (36-46); Hemoglobin 14.0 g/dL (12.0-16.0); Lymphocytes Absolute Auto 2300 /uL (1100-4500); Mean Corpuscular HGB Conc 34.2 % (30-36); Mean Corpuscular Hemoglobin 29.9 PG (26-34); Mean Corpuscular Volume 87.5 fL (80-100); Platelet Count 218 X10^3/uL (150-400)
[2025-07-13 11:20] LABS: Alanine Aminotransferase 15 IU/L (<35); Albumin 4.7 g/dL (3.5-5.0); Albumin Globulin Ratio 1.8 (1.0-2.8); Alkaline Phosphatase 73 U/L (38-126); Blood Urea Nitrogen 14 mg/dL (7-17); Calcium 9.5 mg/dL (8.4-10.2); Carbon Dioxide 27 mmol/L (22-32); Chloride 103 mmol/L (98-107); Cholesterol 216 mg/dL (140-199); Estimated Glomerular Filt Rate > 60 mL/min (>60); Globulin 2.6 g/dL (1.7-4.1); Glucose 88 mg/dL (70-99); HDL Cholesterol 78 mg/dL (40-60); HEMOLYSIS < 15 (0-50); Potassium 3.9 mmol/L (3.4-5.1); Sodium 139 mmol/L (137-145); Total Protein 7.3 g/dL (6.3-8.2); Triglycerides 116 mg/dL (35-150)
[2025-07-13 11:45] LABS: TSH w/ Reflex to FT4 1.94 uIU/mL (0.47-4.68)
== END ==
PROVIDERS: PCP Family Medicine; Referring Provider Family Medicine; Visit Provider Family Medicine
DX: M25.50 Pain in unspecified joint (principal); F90.0 Attention-deficit hyperactivity disorder, predominantly inattentive type; E78.5 Hyperlipidemia, unspecified
CPT/HCPCS: 36415; 80053; 80061; 84443; 85025; 85651; 86140